=== PATIENT | female | born 1935 | race Caucasian/White ===

== ENCOUNTER → 2018-04-08 08:28 | Outpatient (REF) | payer SELFPAY ==
[2018-03-24 02:03] VITALS: BMI 18.8
[2018-03-26 06:59] VITALS: PULSE 101; RESP 22; O2SAT 92
[2018-04-08 09:27] LABS: Add Manual Diff / Slide Review NO; Basophils Percent Auto 0.9 % (0-2); Eosinophils Percent Auto 1.6 % (2-4); Hematocrit 30.5 % (36-46); Hemoglobin 10.6 g/dL (12.0-16.0); Lymphocytes Percent Auto 18.1 % (25-40); Mean Corpuscular Volume 94.4 fL (80-100); Monocytes Percent Auto 12.8 % (3-14); Neutrophils Absolute Auto 4600 /uL (3000-5900); Neutrophils Percent Auto 66.6 % (50-75); Platelet Count 449 X10^3/uL (150-400); Red Blood Cell Count 3.23 X10^6/uL (4.0-5.2); Red Cell Distribution Width 13.2 % (11.6-14.8); White Blood Cell Count 6.9 X10^3/uL (4.5-11.0)
[2018-04-08 09:38] LABS: INR 2.3 (0.9-1.3); Prothrombin Time 24.3 SECONDS (10.1-12.7)
[2018-04-08 09:48] LABS: Calcium 8.6 mg/dL (8.4-10.2); Estimated Glomerular Filt Rate > 60.0 mL/min (>60); Glucose 87 mg/dL (80-110); HEMOLYSIS < 15 (0-50); Potassium 4.2 mmol/L (3.4-5.1); Sodium 137 mmol/L (137-145)
== END ==
LOC: LAB 08:28
PROVIDERS: Family Provider Family Medicine; PCP Family Medicine; Visit Provider Internal Medicine
DX: Z00.00 Encounter for general adult medical examination without abnormal findings (principal); I26.99 Other pulmonary embolism without acute cor pulmonale
CPT/HCPCS: 36415; 80048; 85025; 85610

== ENCOUNTER → 2018-04-11 07:53 | Outpatient (REF) | payer SELFPAY ==
[2018-03-24 02:03] VITALS: BMI 18.8
[2018-03-26 06:59] VITALS: PULSE 101; RESP 22; O2SAT 92
[2018-04-11 09:07] LABS: Add Manual Diff / Slide Review NO; Basophils Percent Auto 0.9 % (0-2); Eosinophils Percent Auto 3.9 % (2-4); Hematocrit 32.2 % (36-46); Lymphocytes Percent Auto 28.5 % (25-40); Mean Corpuscular Hemoglobin 32.3 PG (26-34); Monocytes Percent Auto 17.1 % (3-14); Neutrophils Absolute Auto 3000 /uL (3000-5900); Neutrophils Percent Auto 49.6 % (50-75); Platelet Count 440 X10^3/uL (150-400); Red Blood Cell Count 3.39 X10^6/uL (4.0-5.2); Red Cell Distribution Width 13.5 % (11.6-14.8)
[2018-04-11 09:20] LABS: Estimated Glomerular Filt Rate > 60.0 mL/min (>60); Glucose 73 mg/dL (80-110); HEMOLYSIS < 15 (0-50); Potassium 4.3 mmol/L (3.4-5.1); Sodium 138 mmol/L (137-145)
== END ==
LOC: LAB 07:53
PROVIDERS: Family Provider Family Medicine; PCP Family Medicine; Visit Provider Internal Medicine
DX: Z00.00 Encounter for general adult medical examination without abnormal findings (principal); I50.9 Heart failure, unspecified; J18.9 Pneumonia, unspecified organism
CPT/HCPCS: 36415; 80048; 85025

== ENCOUNTER → 2018-04-13 08:15 | Outpatient (REF) | payer SELFPAY ==
[2018-03-24 02:03] VITALS: BMI 18.8
[2018-03-26 06:59] VITALS: PULSE 101; RESP 22; O2SAT 92
[2018-04-13 09:14] LABS: Add Manual Diff / Slide Review NO; Basophils Percent Auto 1.2 % (0-2); Eosinophils Percent Auto 2.8 % (2-4); Hematocrit 32.2 % (36-46); Hemoglobin 11.1 g/dL (12.0-16.0); Lymphocytes Percent Auto 19.3 % (25-40); Mean Corpuscular HGB Conc 34.4 % (30-36); Mean Corpuscular Hemoglobin 32.6 PG (26-34); Mean Corpuscular Volume 94.8 fL (80-100); Monocytes Percent Auto 11.4 % (3-14); Neutrophils Absolute Auto 4300 /uL (3000-5900); Neutrophils Percent Auto 65.3 % (50-75); Platelet Count 435 X10^3/uL (150-400); Red Cell Distribution Width 13.4 % (11.6-14.8); White Blood Cell Count 6.6 X10^3/uL (4.5-11.0)
[2018-04-13 09:35] LABS: Estimated Glomerular Filt Rate > 60.0 mL/min (>60); Glucose 76 mg/dL (80-110); HEMOLYSIS < 15 (0-50); Potassium 4.2 mmol/L (3.4-5.1); Sodium 138 mmol/L (137-145)
== END ==
LOC: LAB 08:15
PROVIDERS: Family Provider Family Medicine; PCP Family Medicine; Visit Provider Internal Medicine
DX: Z00.00 Encounter for general adult medical examination without abnormal findings (principal); J18.9 Pneumonia, unspecified organism; I50.9 Heart failure, unspecified; I26.99 Other pulmonary embolism without acute cor pulmonale
CPT/HCPCS: 36415; 80048; 85025

== ENCOUNTER → 2018-04-15 07:58 | Outpatient (REF) | payer MEDICARE, OTHER, SELFPAY ==
[2018-03-24 02:03] VITALS: BMI 18.8
[2018-03-26 06:59] VITALS: PULSE 101; RESP 22; O2SAT 92
[2018-04-15 08:49] LABS: INR 1.5 (0.9-1.3); Prothrombin Time 16.4 SECONDS (10.1-12.7)
== END ==
LOC: LAB 07:58
PROVIDERS: Family Provider Family Medicine; PCP Family Medicine; Visit Provider Internal Medicine
DX: Z92.29 Personal history of other drug therapy (principal)
CPT/HCPCS: 36415; 85610

== ENCOUNTER → 2018-04-18 09:11 | Outpatient (REF) | payer MEDICARE, SELFPAY ==
[2018-03-24 02:03] VITALS: BMI 18.8
[2018-03-26 06:59] VITALS: PULSE 101; RESP 22; O2SAT 92
[2018-04-18 09:35] LABS: INR 1.4 (0.9-1.3); Prothrombin Time 14.9 SECONDS (10.1-12.7)
== END ==
LOC: LAB 09:11
PROVIDERS: Family Provider Family Medicine; PCP Family Medicine; Visit Provider Internal Medicine
DX: I26.99 Other pulmonary embolism without acute cor pulmonale (principal)
CPT/HCPCS: 85610

== ENCOUNTER → 2018-04-20 09:50 | Outpatient (REF) | payer MEDICARE, OTHER, SELFPAY ==
[2018-03-24 02:03] VITALS: BMI 18.8
[2018-03-26 06:59] VITALS: PULSE 101; RESP 22; O2SAT 92
[2018-04-20 11:06] LABS: INR 1.5 (0.9-1.3); Prothrombin Time 16.6 SECONDS (10.1-12.7)
== END ==
LOC: LAB 09:50
PROVIDERS: Family Provider Family Medicine; PCP Family Medicine; Visit Provider Internal Medicine
DX: Z00.00 Encounter for general adult medical examination without abnormal findings (principal); I26.99 Other pulmonary embolism without acute cor pulmonale
CPT/HCPCS: 36415; 85610

== ENCOUNTER 2018-06-06 21:55 | Emergency (ER) | payer MEDICARE, OTHER, SELFPAY ==
[2018-03-24 02:03] VITALS: BMI 18.8
[2018-03-26 06:59] VITALS: PULSE 101; RESP 22; O2SAT 92
[2018-06-06 22:00] VITALS: BP 123/71; PULSE 119; RESP 18; TEMP 36.5; O2SAT 95; BMI 18.8
--- NOTE | 2018-06-06 22:32 | ED_ITS ---
HPI - SOB/Dyspnea General Chief Complaint: Shortness of Breath/Dyspnea Stated Complaint: THINKS SHE HAS A PULMONARY EMBOLISM Time Seen by Provider: 06/06/18 22:31 Source: patient Mode of arrival: ambulatory Limitations: no limitations History of Present Illness The patient was admitted here March 2018 with a PE. She is anticoagulated, on Coumadin. Over the last few days she has developed dyspnea with cough. She denies fever, chills or hemoptysis. She has dyspnea when climbing steps. She has no associated chest pain. She has no peripheral edema. She has no orthopnea. She was seen by her primary care physician earlier today, he noted her O2 sats had dropped from the upper 90s to the lower 90s. There was concern about recurrence of PE despite been anticoagulated. Vitals are otherwise stable , she came to the ER by POV using the local [employer] system. Upon arrival she is speaking in full sentences. She denies chest pain. She has primarily cough, and dyspnea with exertion. She is feeling fatigued. Her oral intake is poor. Her appetite is greatly compromised with the current element. Related Data Home Medications Medication Instructions Recorded Confirmed albuterol sulfate [ProAir HFA] 2 puff INHALATION Q4-6H PRN 03/24/18 03/24/18 atorvastatin 40 mg PO DAILY 03/24/18 03/24/18 metoprolol tartrate 25 mg PO BID 03/24/18 03/24/18 Previous Rx's Medication Instructions Recorded acetaminophen 650 mg PO Q4HR PRN #30 tab 04/02/18 tramadol 50 mg PO Q4HR PRN #30 tab 04/02/18 warfarin [Coumadin] 4 mg PO 1700 #30 tab 04/02/18 amoxicillin-pot clavulanate 1 tab PO BID #14 tab 06/07/18 Allergies Allergy/AdvReac Type Severity Reaction Status Date / Time No Known Drug Allergies Allergy Verified 03/23/18 22:47 Review of Systems Constitutional Denies chills, Denies fever(s), Reports lethargy and Reports weakness ENT Ears, Nose, Mouth, and Throat: Denies change in voice, Denies dysphagia, Denies dizziness, Denies neck pain and Denies sore throat Cardiovascular Denies chest pain, Denies irregular heart rhythm, Denies lightheadedness, Denies palpitations, Reports dyspnea, Reports dyspnea on exertion and Denies orthopnea Respiratory Reports cough, Denies hemoptysis, Reports dyspnea and Reports dyspnea on exertion Gastrointestinal Gastrointestinal: Denies abdominal pain, Denies constipation, Denies cramping, Denies dysphagia, Denies nausea, Denies vomiting and Reports other (Loss of appetite) Musculoskeletal Denies neck pain Integumentary/Breasts Denies pruritus, Denies erythema, Denies rash and Denies wounds Neurologic Denies dizziness and Reports weakness Endocrine Denies palpitations [facility] Medical History Acute pulmonary embolism (Acute) HTN (hypertension) (Chronic) Hyperlipidemia (Chronic) Social History household members: spouse Smoking Status: Former smoker additional social history: She and her live on [facility] long-time residents there Exam Initial Vital Signs Initial Vital Signs: Vital Signs Temperature 97.7 F 06/06/18 22:00 Pulse Rate 119 H 06/06/18 22:00 Respiratory Rate 18 06/06/18 22:00 Blood Pressure 123/71 H 06/06/18 22:00 Pulse Oximetry 95 06/06/18 22:00 Const General: cooperative, healthy appearing, comfortable, well developed and No acute distress Orientation: alert, awake and oriented x3 HENMT Head: normocephalic and atraumatic Ears: TM's normal bilaterally Face and sinus: sinuses nontender and face symmetric Mouth: oral mucosae normal and moist mucous membranes Throat: tonsils normal and uvula not midline Eyes General: appearance normal, both eyes and all related structures Conjunctivae: conjunctivae normal Sclera: sclerae normal Pupils: PERRL EOM: EOM intact bilaterally Neck Neck: full ROM and No JVD Chest Chest: normal inspection of the chest Resp Effort & Inspection: normal respiratory effort, able to speak in complete sentences, no respiratory distress and no use of accessory muscles Auscultation: clear to auscultation bilaterally, no rales, no rhonchi and no wheezes Cardio Rate: regular rate Rhythm: regular rhythm Heart Sounds: no click, no gallops, no murmurs and no rubs Pulses: normal peripheral pulses GI Inspection: non-distended Palpation: soft, no hepatosplenomegaly, No guarding, No pulsatile mass and No tender Auscultation: normal bowel sounds Skin General: no rashes or lesions noted and No petechiae Neuro General: alert, oriented x3, gait normal and no focal motor deficits Speech: speech normal Extrem General: full ROM, no clubbing, cyanosis or edema, no pedal edema and no calf tenderness Course Orders Ordered: ED Orders 06/06/18 22:45 CMP [Comprehensive Metabolic Panel] Stat Complete Blood Count AUTO DIFF Stat Partial Thromboplastin Time Stat Prothrombin Time INR Stat 06/06/18 22:49 CT angio chest Stat 06/07/18 EKG-12 Lead Routine 06/07/18 01:12 Urine Microscopic Stat Discontinued Medications Sodium Chloride (Normal Saline 0.9%) 1,000 mls @ 125 mls/hr IV CONT ALEXIS Last Infusion: 06/07/18 04:18 Dose: 125 mls/hr Admin: 06/06/18 23:30 Dose: 125 mls/hr Ceftriaxone Sodium/Dextrose (Rocephin) 1 gm in 50 mls @ 100 mls/hr IV NOW ONE Stop: 06/07/18 03:13 Last Infusion: 06/07/18 03:57 Dose: 0 mls/hr Admin: 06/07/18 03:11 Dose: 100 mls/hr Vital Signs - 8 hr 06/07/18 00:00 06/07/18 01:30 06/07/18 02:00 Temperature Pulse Rate 81 83 83 Respiratory Rate 16 22 17 Blood Pressure [Right Arm] 123/63 H 124/60 H 116/75 Pulse Oximetry 97 93 94 06/07/18 03:00 06/07/18 03:30 06/07/18 04:19 Temperature 99.0 F Pulse Rate 74 80 Respiratory Rate 21 Blood Pressure [Right Arm] 128/71 H 137/70 H Pulse Oximetry 100 95 MDM - SOB/Dyspnea Medical Records Attestation: I reviewed the patient's medical records. Lab Data Attestation: I reviewed the patient's lab results. Result diagrams: 06/06/18 22:45 06/06/18 22:45 Lab Results 06/06/18 06/06/18 06/06/18 Range/Units 22:45 22:45 22:45 WBC 10.8 (4.5-11.0) X10^3/uL RBC 3.84 L (4.0-5.2) X10^6/uL Hgb 12.4 (12.0-16.0) g/dL Hct 36.1 (36-46) % MCV 94.0 (80-100) fL MCH 32.2 (26-34) PG MCHC 34.2 (30-36) % RDW 15.1 H (11.6-14.8) % Plt Count 287 (150-400) X10^3/uL Neut % (Auto) 75.6 H (50-75) % Lymph % (Auto) 12.9 L (25-40) % [place] % (Auto) 10.4 (3-14) % Eos % (Auto) 0.2 L (2-4) % Baso % (Auto) 0.9 (0-2) % Neut # (Auto) 8200 H (3042-1996) /uL PT 21.7 H (10.1-12.7) SECONDS INR 2.0 H (0.9-1.3) APTT 37 H (26.4-36.2) SECONDS Sodium 134 L (137-145) mmol/L Potassium 3.8 (3.4-5.1) mmol/L Chloride 94 L (98-107) mmol/L Carbon Dioxide 31 (22-32) mmol/L BUN 23 H (7-17) mg/dL Creatinine 0.70 (0.52-1.04) mg/dL Estimated GFR > 60.0 (>60) mL/min BUN/Creatinine Ratio 32.9 H (6-22) Glucose 113 H (80-110) mg/dL Calcium 9.9 (8.4-10.2) mg/dL Total Bilirubin 1.0 (0.2-1.3) mg/dL AST 77 H (14-36) IU/L ALT 47 (9-52) IU/L Alkaline Phosphatase 235 H (38-126) U/L Total Protein 7.3 (6.3-8.2) g/dL Albumin 3.8 (3.5-5.0) g/dL Globulin 3.5 (1.7-4.1) g/dL Albumin/Globulin Ratio 1.1 (1.0-2.8) Urine RBC (0-5/HPF) Urine WBC (0-5/HPF) Ur Squamous Epith Cells Urine Bacteria (None) Hyaline Casts (None) Urine Mucus (Negative) Ur Culture Indicated? Micro UA Comment 06/07/18 Range/Units 01:12 WBC (4.5-11.0) X10^3/uL RBC (4.0-5.2) X10^6/uL Hgb (12.0-16.0) g/dL Hct (36-46) % MCV (80-100) fL MCH (26-34) PG MCHC (30-36) % RDW (11.6-14.8) % Plt Count (150-400) X10^3/uL Neut % (Auto) (50-75) % Lymph % (Auto) (25-40) % [place] % (Auto) (3-14) % Eos % (Auto) (2-4) % Baso % (Auto) (0-2) % Neut # (Auto) (6804-2527) /uL PT (10.1-12.7) SECONDS INR (0.9-1.3) APTT (26.4-36.2) SECONDS Sodium (137-145) mmol/L Potassium (3.4-5.1) mmol/L Chloride (98-107) mmol/L Carbon Dioxide (22-32) mmol/L BUN (7-17) mg/dL Creatinine (0.52-1.04) mg/dL Estimated GFR (>60) mL/min BUN/Creatinine Ratio (6-22) Glucose (80-110) mg/dL Calcium (8.4-10.2) mg/dL Total Bilirubin (0.2-1.3) mg/dL AST (14-36) IU/L ALT (9-52) IU/L Alkaline Phosphatase (38-126) U/L Total Protein (6.3-8.2) g/dL Albumin (3.5-5.0) g/dL Globulin (1.7-4.1) g/dL Albumin/Globulin Ratio (1.0-2.8) Urine RBC None seen (0-5/HPF) Urine WBC 5-10/hpf H (0-5/HPF) Ur Squamous Epith Cells 5-10 /hpf H Urine Bacteria Occasional (0-1) (None) Hyaline Casts 10-30/lpf (None) Urine Mucus 1+ H (Negative) Ur Culture Indicated? Cult not indicated Micro UA Comment Not Reportable Imaging Data CT scan - chest: Radiologist's impression: No evidence of PE. Diffuse densities suggestive of inflammatory process bilaterally. ECG Data Attestation: I personally reviewed and interpreted this ECG as follows: (Normal sinus rhythm. No ectopy. Normal intervals. No acute ST changes.) Discharge Plan Departure Patient Disposition: Home, Self-Care Clinical Impression: Pneumonia Discharge Date/Time: 06/07/18 04:31 Interventions: ED Discharge Assessment Last Done: 06/07/18 04:19 Instructions: DI for Pneumonia -- Adult Activity Restrictions/Additional Instructions: Take Augmentin 2 times daily as prescribed. Drink plenty of water, stay well hydrated. Fight the poor appetite, and force yourself to eat. Return here if obviously worse. Prescriptions: New amoxicillin-pot clavulanate 875-125 mg tablet 1 tab PO BID Qty: 14 RF: 0 No Action atorvastatin 40 mg Tablet 40 mg PO DAILY RF: 0 metoprolol tartrate 25 mg Tablet 25 mg PO BID RF: 0 albuterol sulfate [ProAir HFA] 90 mcg/actuation Hfa Aerosol Inhaler 2 puff INHALATION Q4-6H PRN (Reason: Cough) RF: 0 acetaminophen 325 mg Tablet 650 mg PO Q4HR PRN (Reason: As Needed For Fever/Mild Pain) Qty: 30 RF: 0 tramadol 50 mg Tablet 50 mg PO Q4HR PRN (Reason: Moderate Pain) Qty: 30 RF: 0 warfarin [Coumadin] 2 mg Tablet 4 mg PO 1700 Qty: 30 RF: 0
--- NOTE | 2018-06-06 22:49 | DI.CT.S_ITS ---
PROCEDURE: CT ANGIO CHEST INDICATIONS: Recent pulomary embolism. She returns with same symptoms suggestive of recurrent PE. TECHNIQUE: After the administration of intravenous contrast, 2 mm thick sections acquired from the pulmonary apices to the posterior costophrenic angles. 3-dimensional maximum intensity projection (MIP) coronal and sagittal reformats were then acquired through the thorax. For radiation dose reduction, the following was used: automated exposure control, adjustment of mA and/or kV according to patient size. COMPARISON: [facility], CT, CT CHEST WO [facility], 03/26/2018, 9:18. FINDINGS: Image quality: Excellent. Pulmonary arteries: Pulmonary arteries are normal in size, and demonstrate no intraluminal filling defects to suggest central pulmonary embolism. Lungs and pleura: Previously seen dependent bilateral lower lobe air space opacities have decreased significantly. There is new moderate airspace opacity within the right middle lobe and lingula. Patchy nodular densities within the bilateral mid lungs is present, which is slightly increased. No change in biapical scarring. No pleural effusions or pneumothorax. Central and peripheral airways are patent. Mediastinum: Heart size is normal, without pericardial effusion. Calcification of the coronary vasculature. No change in precarinal adenopathy or 11 mm. Thoracic aorta is normal in caliber and enhancement. Esophagus is normal in caliber, without hiatal hernia. Bones and chest wall: No suspicious bony lesions. Ribs and thoracic spine appear intact throughout. Thyroid gland demonstrates a small low-density focus within the left lobe measuring 5 mm.. No axillary or supraclavicular adenopathy. Abdomen: Visualized upper abdominal solid organs appear normal in the early arterial phase of enhancement. IMPRESSION: 1. No evidence of pulmonary embolus. 2. No change in precarinal adenopathy. 3. Bilateral pneumonia as described above. 4. Coronary artery disease. Left thyroid nodule, which could be further assessed with ultrasound, if clinically indicated. Dictated by: Gustavo Avilez M.D. on 06/07/2018 at 8:55 Approved by: Gustavo Avilez M.D. on 06/07/2018 at 9:00
[2018-06-06 22:56] LABS: Add Manual Diff / Slide Review NO; Basophils Percent Auto 0.9 % (0-2); Eosinophils Percent Auto 0.2 % (2-4); Hematocrit 36.1 % (36-46); Hemoglobin 12.4 g/dL (12.0-16.0); Lymphocytes Percent Auto 12.9 % (25-40); Mean Corpuscular HGB Conc 34.2 % (30-36); Mean Corpuscular Hemoglobin 32.2 PG (26-34); Monocytes Percent Auto 10.4 % (3-14); Neutrophils Absolute Auto 8200 /uL (3000-5900); Neutrophils Percent Auto 75.6 % (50-75); Platelet Count 287 X10^3/uL (150-400); Red Blood Cell Count 3.84 X10^6/uL (4.0-5.2); Red Cell Distribution Width 15.1 % (11.6-14.8); White Blood Cell Count 10.8 X10^3/uL (4.5-11.0)
[2018-06-06 23:00] VITALS: BP 134/74; PULSE 102; RESP 21; O2SAT 95
[2018-06-06 23:02] LABS: Prothrombin Time 21.7 SECONDS (10.1-12.7)
[2018-06-06 23:04] LABS: PTT Partial Thromboplastin Tim 37 SECONDS (26.4-36.2)
[2018-06-06 23:21] LABS: Alanine Aminotransferase 47 IU/L (9-52); Albumin 3.8 g/dL (3.5-5.0); Albumin Globulin Ratio 1.1 (1.0-2.8); Alkaline Phosphatase 235 U/L (38-126); Aspartate Aminotransferase 77 IU/L (14-36); BUN Creatinine Ratio 32.9 (6-22); Blood Urea Nitrogen 23 mg/dL (7-17); Calcium 9.9 mg/dL (8.4-10.2); Carbon Dioxide 31 mmol/L (22-32); Chloride 94 mmol/L (98-107); Estimated Glomerular Filt Rate > 60.0 mL/min (>60); Globulin 3.5 g/dL (1.7-4.1); Glucose 113 mg/dL (80-110); HEMOLYSIS < 15 (0-50); Potassium 3.8 mmol/L (3.4-5.1); Sodium 134 mmol/L (137-145); Total Protein 7.3 g/dL (6.3-8.2)
[2018-06-06] MEDS: SODIUM CHLORIDE 0.9% 1,000 ML 125 ML IV (23:30)
[2018-06-07] VITALS: BP 123/63; PULSE 81; RESP 16; O2SAT 97
--- NOTE | 2018-06-07 00:05 | PC.NURSE ---
dyspnea, began yesterday, recent admission for PE per pt, reports sx are same as last episode, pain is in bilateral rib/chest/axilla, lungs clear/diminished in bases, denies fever/chills/nausea/vomiting/diarrhea/dysuria/trauma or other sx, sinus tach on monitor
[2018-06-07 01:18] LABS: RBC Urine None Seen (0-5/HPF)
[2018-06-07 01:30] VITALS: BP 124/60; PULSE 83; RESP 22; O2SAT 93
[2018-06-07 02:00] VITALS: BP 116/75; PULSE 83; RESP 17; O2SAT 94
[2018-06-07 02:26] LABS: WBC Urine 5-10/HPF (0-5/HPF)
[2018-06-07 02:27] LABS: Bacteria Urine Occasional (0-1); Culture Indicated Urine Cult Not Indicated; Hyaline Casts Urine 10-30/LPF; Mucus Urine 1+ (Negative); Squamous Epithelial Cell Urine 5-10 /HPF
[2018-06-07 03:00] VITALS: BP 128/71; PULSE 74; RESP 21; O2SAT 100
[2018-06-07] MEDS: CEFTRIAXONE 1 GM/50 ML FROZ.PIGGY IV (03:11)
[2018-06-07 03:30] VITALS: BP 137/70; PULSE 80; O2SAT 95
[2018-06-07 04:19] VITALS: TEMP 37.2
== END 2018-06-07 04:31 | disposition home or self-care (01) ==
PROVIDERS: Emergency Provider Emergency Medicine; Family Provider Family Medicine; PCP Family Medicine
DX: J18.9 Pneumonia, unspecified organism (principal)
CPT/HCPCS: 36591; 71275; 80053; 81003; 81015; 85025; 85610; 85730; 93005; 96361; 96365; 99284; 99285; Q9967

== ENCOUNTER → 2018-06-07 15:45 | Outpatient (CLI) | payer MEDICARE, OTHER, SELFPAY ==
[2018-03-24 02:03] VITALS: BMI 18.8
[2018-03-26 06:59] VITALS: PULSE 101; RESP 22; O2SAT 92
[2018-06-07 18:23] LABS: INR 1.9 (0.9-1.3); Prothrombin Time 20.3 SECONDS (10.1-12.7)
== END ==
PROVIDERS: PCP Family Medicine; Visit Provider Family Medicine
DX: I26.99 Other pulmonary embolism without acute cor pulmonale (principal); Z79.01 Long term (current) use of anticoagulants
CPT/HCPCS: 36415; 85610

== ENCOUNTER → 2019-08-22 13:08 | Outpatient (CLI) | payer MEDICARE, OTHER, SELFPAY ==
[2018-03-24 02:03] VITALS: BMI 18.8
[2018-03-26 06:59] VITALS: PULSE 101; RESP 22; O2SAT 92
--- NOTE | 2019-08-22 | DI.US.S_ITS ---
PROCEDURE: US CAROTID DOPPLER BI INDICATIONS: OCCLUSION AND STENOSIS OF BILATERAL CAROTID ARTERIES TECHNIQUE: Color and pulse Doppler interrogation was performed of both carotid systems, with image documentation and velocity measurements. COMPARISON: None. FINDINGS: Stenosis calculations are based on SRU (Society of Radiologists in Ultrasound) criteria. Right side: Brachial blood pressure: 130/63 mm Hg. Common carotid artery peak systolic velocity: 90 cm/sec. Internal carotid artery peak systolic velocity: 140 cm/sec. Internal carotid artery end diastolic velocity: 29 cm/sec. External carotid artery peak systolic velocity: 114 cm/sec. ICA/CCA peak systolic ratio: 1.6 Garcia scale imaging description: Moderate atherosclerotic changes are seen Percent internal carotid artery stenosis: 50-69% by velocity criteria. Vertebral artery: Flow direction is antegrade. Left side: Brachial blood pressure: 120/62 mm Hg. Common carotid artery peak systolic velocity: 85 cm/sec. Internal carotid artery peak systolic velocity: 278 cm/sec. Internal carotid artery end diastolic velocity: 54 cm/sec. External carotid artery peak systolic velocity: 139 cm/sec. ICA/CCA peak systolic ratio: 3.3 Gracia scale imaging description: Moderate to prominent atherosclerotic changes are seen. Percent internal carotid artery stenosis: Greater than 70%. Vertebral artery: Flow direction is antegrade. IMPRESSION: By velocity criteria, there is a greater than 70% stenosis involving the left internal carotid artery. By velocity criteria, there is a moderate stenosis (between 50 and 69% stenosis) within the right proximal internal carotid artery. The true degree of stenosis is felt most likely to be at the lower end of this range. Dictated by: Dylan Silver M.D. on 08/22/2019 at 15:46 Approved by: Dylan Silver M.D. on 08/22/2019 at 15:48
== END ==
PROVIDERS: PCP Family Medicine; Visit Provider Family Medicine
DX: I65.23 Occlusion and stenosis of bilateral carotid arteries (principal)
CPT/HCPCS: 93880

== ENCOUNTER → 2021-03-21 12:56 | Outpatient (CLI) | payer MEDICARE, OTHER, SELFPAY ==
[2021-03-20 12:04] VITALS: PULSE 101; RESP 22; O2SAT 92; BMI 18.8
[2021-03-21 19:40] LABS: Add Manual Diff / Slide Review NO; Basophils Absolute Auto 0 /uL (0-100); Basophils Percent Auto 0.6 % (0-2); Eosinophils Absolute Auto 100 /uL (0-450); Eosinophils Percent Auto 1.2 % (2-4); Hematocrit 36.4 % (36-46); Hemoglobin 12.5 g/dL (12.0-16.0); Lymphocytes Absolute Auto 1100 /uL (1100-4500); Lymphocytes Percent Auto 16.2 % (25-40); Mean Corpuscular HGB Conc 34.4 % (30-36); Mean Corpuscular Hemoglobin 35.1 PG (26-34); Mean Corpuscular Volume 101.9 fL (80-100); Monocytes Absolute Auto 900 /uL (0-900); Monocytes Percent Auto 12.9 % (3-14); Neutrophils Absolute Auto 4700 /uL (1500-7000); Neutrophils Percent Auto 69.1 % (50-75); Platelet Count 174 X10^3/uL (150-400); Red Blood Cell Count 3.57 X10^6/uL (4.0-5.2); Red Cell Distribution Width 13.6 % (11.6-14.8); White Blood Cell Count 6.8 X10^3/uL (4.5-11.0)
[2021-03-21 19:42] LABS: Alanine Aminotransferase 22 IU/L (<35); Albumin 3.7 g/dL (3.5-5.0); Albumin Globulin Ratio 1.4 (1.0-2.8); Alkaline Phosphatase 91 U/L (38-126); Aspartate Aminotransferase 41 IU/L (14-36); BUN Creatinine Ratio 32.3 (6-22); Bilirubin Total 0.8 mg/dL (0.2-1.3); Blood Urea Nitrogen 21 mg/dL (7-17); Calcium 10.2 mg/dL (8.4-10.2); Carbon Dioxide 31 mmol/L (22-32); Chloride 103 mmol/L (98-107); Estimated Glomerular Filt Rate > 60.0 mL/min (>60); Globulin 2.7 g/dL (1.7-4.1); Glucose 89 mg/dL (80-110); HEMOLYSIS < 15 (0-50); Potassium 4.5 mmol/L (3.4-5.1); Sodium 139 mmol/L (137-145); Total Protein 6.4 g/dL (6.3-8.2); Uric Acid 4.2 mg/dL (2.5-6.2)
== END ==
PROVIDERS: PCP Family Medicine; Visit Provider Family Medicine
DX: I26.99 Other pulmonary embolism without acute cor pulmonale (principal); M10.9 Gout, unspecified; E78.5 Hyperlipidemia, unspecified
CPT/HCPCS: 80053; 84550; 85025

== ENCOUNTER → 2021-04-16 11:24 | Outpatient (CLI) | payer MEDICARE, OTHER, SELFPAY ==
[2021-03-20 12:04] VITALS: PULSE 101; RESP 22; O2SAT 92; BMI 18.8
--- NOTE | 2021-04-16 11:35 | DI.CT.S_ITS ---
PROCEDURE: CT LUMBAR SPINE WO CON INDICATIONS: Persistent and progressive localized lower back pain TECHNIQUE: Noncontrast 3 mm thick sections acquired from the T12 level to the sacrum. Sagittal and coronal reformats were constructed. For radiation dose reduction, the following was used: automated exposure control. COMPARISON: [facility] ([place]), CR, XR LUMBAR SPINE 2-3V, 03/28/2021, 10:32. FINDINGS: Image quality: Excellent. Bones: There is a chronic appearing anterior wedge deformity seen of L1, with 30% loss of height centrally. There is also a subacute appearing central compression deformity seen of L3, with 20-30% loss of height centrally, which appears slightly progressed compared to the 03/28/2021 plain films. No posterior displacement of fracture fragments can be seen. No suspicious lytic or blastic bony lesions. No pars defects. Mild levoconvex scoliotic curvature is noted. There is mild retrolisthesis at L1-L2. Mild grade 1 anterolisthesis is seen at the L4-L5. No associated pars defects are seen. T12-L1: The disc height is relatively well preserved. Mild disc bulge is seen, with a central/left disc osteophyte protrusion, as on series 3, image 20 and on series 6 image 35. No significant neural foraminal or central canal narrowing can be seen. L1-L2: Mild loss of disc height is seen. Moderate disc bulge is seen. Disc protrusions are seen involving both lateral recesses. There is a central disc protrusion seen, with calcification along the posterior aspect of the disc, as on series 6, image 33. Moderate bilateral neural foraminal narrowing is seen. Mild to moderate central canal narrowing is seen. L2-L3: The disc height is well preserved. Moderate generalized disc bulge is seen. Moderate facet joint hypertrophy is seen. Moderate bilateral neural foraminal narrowing is seen. Moderate central canal narrowing is seen. L3-L4: [id number] loss of disc height and disc signal can be seen. At least moderate disc bulge is seen, with a central disc protrusion. There is focal calcification seen along the posterior aspect of the disc, as on series 6, image 33. [id number] facet hypertrophy is seen. Moderate bilateral neural foraminal narrowing is seen. Moderate central canal narrowing is seen. L4-L5: At least moderate loss of disc height can be seen. Moderate generalized disc bulge is seen. Moderate to prominent facet hypertrophy is seen. There is moderate to severe bilateral neural foraminal narrowing seen, right worse than left. There is a degree of compression seen upon the exiting nerve roots. Mild central canal narrowing is seen. L5-S1: Moderate to severe loss of disc height is seen. Vacuum disc phenomenon is seen at this level. At least moderate disc bulge is seen, which is eccentric to the right. Mild to moderate facet hypertrophy is seen. There is moderate to severe bilateral neural foraminal narrowing seen, right worse than left. There is a degree of compression seen upon the exiting nerve roots. Mild central canal narrowing is seen. Soft tissues: No retroperitoneal masses or hematomas. Visualized aorta is normal in caliber. Atherosclerotic calcification is noted. Pacer leads are seen on the cutter head sharpener image. IMPRESSION: Subacute appearing L3 fracture, which appears slightly progressed compared to the 03/28/2021 examination, with 20-30% loss of height centrally. Multiple levels of degenerative change are seen, which are worst at L4-L5 and L5-S1, where a degree of compression can be seen upon the exiting nerve roots. Dictated by: Dylan Silver M.D. on 04/16/2021 at 12:01 Approved by: Dylan Silver M.D. on 04/16/2021 at 12:10
== END ==
PROVIDERS: PCP Family Medicine; Referring Provider Family Medicine; Visit Provider Family Medicine
DX: M43.16 Spondylolisthesis, lumbar region (principal); M54.5 Low back pain; M47.816 Spondylosis without myelopathy or radiculopathy, lumbar region; M47.817 Spondylosis without myelopathy or radiculopathy, lumbosacral region; M48.56XA Collapsed vertebra, not elsewhere classified, lumbar region, initial encounter for fracture
CPT/HCPCS: 72131

== ENCOUNTER → 2021-11-07 12:04 | Outpatient (CLI) | payer MEDICARE, OTHER, SELFPAY ==
[2021-03-20 12:04] VITALS: PULSE 101; RESP 22; O2SAT 92; BMI 18.8
[2021-11-07 18:51] LABS: Add Manual Diff / Slide Review NO; Basophils Absolute Auto 100 /uL (0-100); Eosinophils Absolute Auto 0 /uL (0-450); Eosinophils Percent Auto 0.8 % (2-4); Hematocrit 37.6 % (36-46); Hemoglobin 12.9 g/dL (12.0-16.0); Lymphocytes Absolute Auto 1300 /uL (1100-4500); Lymphocytes Percent Auto 21.8 % (25-40); Mean Corpuscular HGB Conc 34.3 % (30-36); Mean Corpuscular Hemoglobin 34.5 PG (26-34); Mean Corpuscular Volume 100.7 fL (80-100); Monocytes Absolute Auto 600 /uL (0-900); Monocytes Percent Auto 11.3 % (3-14); Neutrophils Absolute Auto 3700 /uL (1500-7000); Neutrophils Percent Auto 65.1 % (50-75); Platelet Count 197 X10^3/uL (150-400); Red Blood Cell Count 3.73 X10^6/uL (4.0-5.2); Red Cell Distribution Width 13.7 % (11.6-14.8); White Blood Cell Count 5.7 X10^3/uL (4.5-11.0)
[2021-11-07 19:00] LABS: Alanine Aminotransferase 20 IU/L (<35); Albumin 3.9 g/dL (3.5-5.0); Albumin Globulin Ratio 1.4 (1.0-2.8); Alkaline Phosphatase 95 U/L (38-126); Aspartate Aminotransferase 33 IU/L (14-36); BUN Creatinine Ratio 25.9 (6-22); Bilirubin Total 0.6 mg/dL (0.2-1.3); Blood Urea Nitrogen 15 mg/dL (7-17); Calcium 10.3 mg/dL (8.4-10.2); Carbon Dioxide 34 mmol/L (22-32); Chloride 103 mmol/L (98-107); Estimated Glomerular Filt Rate > 60.0 mL/min (>60); Globulin 2.8 g/dL (1.7-4.1); Glucose 122 mg/dL (80-110); HEMOLYSIS < 15 (0-50); Iron 74 ug/dL (37-170); Potassium 3.8 mmol/L (3.4-5.1); Sodium 140 mmol/L (137-145); Total Protein 6.7 g/dL (6.3-8.2)
[2021-11-07 19:12] LABS: Percent Iron Saturation 24 % (15-50); Total Iron Binding Capacity 312 ug/dL (265-497); Transferrin 254 mg/dL (206-381)
[2021-11-07 19:32] LABS: Ferritin 27 ng/mL (11-264)
[2021-11-07 19:33] LABS: TSH w/ Reflex to FT4 2.59 uIU/mL (0.47-4.68)
[2021-11-07 20:04] LABS: Folate 5.1 ng/mL (2.76-20.0); Vitamin B12 216 pg/mL (239-931)
== END ==
PROVIDERS: PCP Family Medicine; Visit Provider Physician Assistant
DX: I49.5 Sick sinus syndrome (principal); L03.116 Cellulitis of left lower limb; D64.9 Anemia, unspecified; R55 Syncope and collapse
CPT/HCPCS: 80053; 82607; 82728; 82746; 83540; 83550; 84443; 85025

== ENCOUNTER → 2022-03-11 08:04 | Outpatient (CLI) | payer MEDICARE, OTHER, SELFPAY ==
[2021-03-20 12:04] VITALS: PULSE 101; RESP 22; O2SAT 92; BMI 18.8
[2022-03-11 20:11] LABS: COVID19 - ORCAS (NP or Nasal) Negative (Negative)
== END ==
PROVIDERS: PCP Family Medicine; Visit Provider Physician Assistant
DX: R05.9 Cough, unspecified (principal); Z20.822 Contact with and (suspected) exposure to COVID-19
CPT/HCPCS: U0003

== ENCOUNTER 2022-03-13 11:54 | Observation (INO) | payer MEDICARE, OTHER, SELFPAY ==
[2021-03-20 12:04] VITALS: PULSE 101; RESP 22; O2SAT 92; BMI 18.8
[2022-03-13] VITALS (22 sets, daily range): BP systolic 117–183; BP diastolic 53–81; PULSE 74–125; RESP 16–24; TEMP 36.8–37.3; O2SAT 91–99; BMI 16.4
--- NOTE | 2022-03-13 11:58 | DI.RAD.S_ITS ---
PROCEDURE: XR CHEST 1V INDICATIONS: chest pain TECHNIQUE: One view of the chest was acquired. COMPARISON: [facility] ([place]), CR, XR CHEST 2V, 12/22/2021, 12:29. FINDINGS: Surgical changes and devices: Left chest wall pacemaker leads are in the region of right atrium and right ventricle.. Lungs and pleura: Chronic emphysematous changes are seen in in bilateral lung cordero. Ill-defined subtle opacities are seen in bilateral mid to lower lung cordero concerning for early developing patchy infiltrates. No pleural effusions or pneumothorax. Mediastinum: Tortuous thoracic aorta is seen with aortic arch calcifications. Heart size is normal. Bones and chest wall: No suspicious bony lesions. Overlying soft tissues appear unremarkable. IMPRESSION: COPD. Cannot rule out underlying subtle patchy bilateral pulmonary infiltrates. No pleural effusion or pneumothorax. Dictated by: Quincy Marx M.D. on 03/13/2022 at 12:32 Approved by: Quincy Marx M.D. on 03/13/2022 at 12:35
[2022-03-13 12:18] LABS: Add Manual Diff / Slide Review NO; Basophils Absolute Auto 0 /uL (0-100); Basophils Percent Auto 0.3 % (0-2); Eosinophils Absolute Auto 100 /uL (0-450); Eosinophils Percent Auto 0.4 % (2-4); Hematocrit 37.7 % (36-46); Hemoglobin 12.6 g/dL (12.0-16.0); Lymphocytes Absolute Auto 600 /uL (1100-4500); Lymphocytes Percent Auto 4.8 % (25-40); Mean Corpuscular HGB Conc 33.4 % (30-36); Mean Corpuscular Hemoglobin 33.6 PG (26-34); Mean Corpuscular Volume 100.6 fL (80-100); Monocytes Absolute Auto 1000 /uL (0-900); Monocytes Percent Auto 7.9 % (3-14); Neutrophils Absolute Auto 11300 /uL (1500-7000); Neutrophils Percent Auto 86.6 % (50-75); Platelet Count 280 X10^3/uL (150-400); Red Blood Cell Count 3.74 X10^6/uL (4.0-5.2); Red Cell Distribution Width 12.7 % (11.6-14.8)
[2022-03-13 13:02] LABS: Alanine Aminotransferase 108 IU/L (<35); Albumin 3.4 g/dL (3.5-5.0); Albumin Globulin Ratio 0.9 (1.0-2.8); Alkaline Phosphatase 202 U/L (38-126); Aspartate Aminotransferase 96 IU/L (14-36); BUN Creatinine Ratio 41.9 (6-22); Bilirubin Total 1.4 mg/dL (0.2-1.3); Blood Urea Nitrogen 26 mg/dL (7-17); Calcium 9.8 mg/dL (8.4-10.2); Carbon Dioxide 37 mmol/L (22-32); Chloride 99 mmol/L (98-107); Creatine Kinase < 20 U/L (30-135); Estimated Glomerular Filt Rate > 60 mL/min (>60); Globulin 3.7 g/dL (1.7-4.1); Glucose 112 mg/dL (80-110); HEMOLYSIS < 15 (0-50); Lipase 83 U/L (23-300); Magnesium 1.9 mg/dL (1.6-2.3); Potassium 3.6 mmol/L (3.4-5.1); Sodium 138 mmol/L (137-145); Total Protein 7.1 g/dL (6.3-8.2)
--- NOTE | 2022-03-13 13:05 | ED.WEAKNESS ---
HPI - Weakness General Chief complaint: Weakness Stated complaint: Failure to thrive Time Seen by Provider: 03/13/22 12:35 Source: patient Mode of arrival: EMS Limitations: no limitations History of Present Illness HPI Narrative: This is an 86-year-old female airlifted from [facility] for failure to thrive, weakness and decreased mental status. Per her lift unsure what her normal baseline is she is forgetful but alert and talkative with them. Patient on evaluation at bedside and is aware that she is at the hospital she wants to be at when has trouble recalling the name. She knows her name. She knows that she is here via your left but has trouble recalling other history. She can tell me she lives on [facility]. She has trouble give me any additional history. She denies any pain. No headache, no neck pain, no chest pain. Some occasional shortness of breath but does not describe it to myself. No describe nausea or vomiting no other GI or urinary symptoms described. She has reported history of COPD, pulmonary emboli and reportedly on anticoagulation with hypertension and dyslipidemia. Patient normally lives independently at home with her . Related Data Home Medications Medication Instructions Recorded Confirmed calcium carbonate 600 mg calcium 600 mg PO DAILY 03/25/21 03/13/22 (1,500 mg) tablet Previous Rx's Medication Instructions Recorded acetaminophen 500 mg tablet 500 - 1,000 mg PO Q8-10H PRN #40 11/05/21 (Tylenol Extra Strength) tab atorvastatin 40 mg tablet 40 mg PO DAILY #90 tab 01/17/22 metoprolol tartrate 25 mg tablet 12.5 mg PO DAILY #45 tab 02/16/22 rivaroxaban 20 mg tablet 20 mg PO DAILY #90 tab 02/16/22 Allergies Allergy/AdvReac Type Severity Reaction Status Date / Time amoxicillin AdvReac Intermediate Pain, Verified 03/13/22 09:53 Diarrhea Review of Systems Review of Systems ROS Unobtainable: Unobtainable due to mental status/LOC Patient History Medical History Achilles bursitis Achilles tendinitis Acute pulmonary embolism Anticoagulation adequate Arthritis of facet joint of cervical spine Carotid artery stenosis Cellulitis COPD (chronic obstructive pulmonary disease) HTN (hypertension) Hyperlipidemia Left knee pain 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 Low back pain Sinus node dysfunction Spondylolisthesis at L3-L4 level Ventricular tachycardia Surgical History Anesthesia History of appendectomy Pacemaker (~2019) Family History Father Cancer Mother Cancer Brother Cancer Social History household members: spouse Smoking Status: Former smoker alcohol intake: current additional social history: She and her live on [facility]-time residents there Smoking Status: Former smoker alcohol intake frequency: a few times a week Substance Use Type: does not use Exam Narrative Exam Narrative: GEN: Frail, thin elderly appearing female alert and oriented to self, patient appears to be in mild distress. HEENT: Atraumatic, pupils are equal round reactive to light, extraocular movements are intact, nares are clear, there is no conjunctival pallor. Throat is clear without any exudates, erythema, tonsillar enlargement or uvular deviation HEART: Regular rate and rhythm without murmur, clicks, rubs. Pulses are equal in upper and lower extremities LUNGS:Lungs clear to auscultation, no wheezes, rales, crackles, chest moves symmetrically ABD:bowel sounds normal, soft, non-tender, no guarding, rebound, rigidity, no masses noted, no hepatosplenomegaly :No CVA tenderness MSCL: Non-tender, no muscle atrophy, muscles strength 5/5 upper and lower extremities, full range of motion NEURO:CN 2-12 intact, sensation normal, finger nose finger test normal, heel eduardo test normal. GCS 14 SKIN: No rash, erythema or other skin changes. PSYCH: Pleasant, confused but does states she is normally has memory issues. No hallucinations. Initial Vital Signs Initial Vital Signs: Vital Signs Temperature 99.2 F 03/13/22 12:05 Pulse Rate 94 H 03/13/22 12:05 Respiratory Rate 18 03/13/22 12:05 Blood Pressure 183/81 H 03/13/22 12:05 Pulse Oximetry 96 03/13/22 12:05 Course Orders Ordered: ED Orders 03/13/22 11:58 XR chest 1V Stat 03/13/22 12:05 Complete Blood Count AUTO DIFF Stat Lactate (Lactic Acid) Stat PTT [Partial Thromboplastin Time] Stat Prothrombin Time INR Stat 03/13/22 12:15 EKG-12 Lead Stat 03/13/22 12:40 Blood Culture Stat Comprehensive Metabolic Panel Stat Lipase Stat Magnesium Stat Troponin & CK Cardiac Panel Stat 03/13/22 12:53 COVID19 -Nasal RAPID/Pre-Proc Stat 03/13/22 13:08 CT head/brain wo con Stat 03/13/22 13:09 US abdomen limited Stat 03/13/22 13:36 Troponin & CK Cardiac Panel Stat 03/13/22 13:50 Ictotest Urine Stat UA Complete [Urinalysis and Microscopic] Stat Urine Culture Stat Acetaminophen (Acetaminophen 325 Mg Tablet) 650 mg PO Q6HR PRN PRN Reason: Pain, Mild (1-3) Sodium Chloride (Normal Saline 0.9%) 1,000 mls @ 1,000 mls/hr IV BOLUS PRN PRN Reason: Fluid replacement Last Infusion: 03/13/22 16:22 Dose: 0 mls/hr Documented by: Admin: 03/13/22 15:21 Dose: 1,000 mls/hr Documented by: MARY Ceftriaxone Sodium 1,000 mg/ (Sodium Chloride) 100 mls @ 200 mls/hr IV Q24H ALEXIS Last Admin: 03/13/22 18:19 Dose: 200 mls/hr Documented by: CMCFARL Sodium Chloride (Normal Saline 0.9%) 250 mls @ 21 mls/hr IV Q24H PRN PRN Reason: Flush Metoprolol Succinate (Metoprolol Er 25 Mg Tablet) 12.5 mg PO BID REPLACED BY [facility] Naloxone HCl (Naloxone 0.4 Mg/Ml Vial) 0.2 mg IV Q2MIN PRN PRN Reason: Opiate Reversal Ondansetron HCl (Ondansetron 4 Mg/2 Ml Inj) 4 mg IV Q8HR PRN PRN Reason: Nausea And Vomiting Sodium Chloride (Sodium Chloride 0.9% Flush) 10 ml IV PRN PRN PRN Reason: Flush Sodium Chloride (Sodium Chloride 0.9% Flush) 10 ml IV BID REPLACED BY [facility] Discontinued Medications Diltiazem HCl (Diltiazem 5 Mg/Ml Sdv) 10 mg IV NOW ONE Stop: 03/13/22 15:45 Last Admin: 03/13/22 15:56 Dose: 10 mg Documented by: [email or web address] Diltiazem HCl (Diltiazem Cd 120 Mg Cap) 120 mg PO NOW ONE Stop: 03/13/22 16:22 Last Admin: 03/13/22 16:35 Dose: 120 mg Documented by: [email or web address] Levofloxacin (Levaquin) 750 mg in 150 mls @ 100 mls/hr IV NOW ONE Stop: 03/13/22 14:39 Last Infusion: 03/13/22 15:17 Dose: 0 mls/hr Documented by: Admin: 03/13/22 13:44 Dose: 100 mls/hr Documented by: [email or web address] Reevaluation(s) Reevaluation #1: Today's findings reviewed with patient and family currently and daughter both at bedside. Discussed additional workup that is planned. And goal of observation. The son states patient has some normal baseline memory issues but is definitely worse than her typical. She has able to ambulate to the bathroom but has been sleeping and not walking on the house. Patient is anticoagulated, she is on a statin he does not describe any beta-blockers or calcium channel blockers normally but has a history of AFib with a pacemaker in place for recurrent syncope. Patient has not had any other major changes besides generalized weakness, sleeping more and decreased mental status. Having appreciated pain, dyspnea or shortness of breath, she has not been having any vomiting but has not taken any solids for the past 5 days she has been taking fluids. No major changes to stool output that they report. Vital Signs Vital signs: Vital Signs - 8 hr 03/13/22 12:42 03/13/22 13:00 03/13/22 13:08 Pulse Rate 100 H 104 H 95 H Respiratory Rate Blood Pressure 121/58 L Pulse Oximetry 96 95 96 03/13/22 13:30 03/13/22 14:00 03/13/22 14:19 Pulse Rate 101 H 103 H 108 H Respiratory Rate Blood Pressure 117/75 Pulse Oximetry 98 94 91 03/13/22 14:30 03/13/22 15:00 03/13/22 15:14 Pulse Rate 107 H 117 H 113 H Respiratory Rate Blood Pressure 125/64 133/71 138/60 Pulse Oximetry 95 95 03/13/22 15:15 03/13/22 15:30 03/13/22 15:45 Pulse Rate 115 H 125 H 110 H Respiratory Rate 20 21 22 Blood Pressure 130/60 117/56 L 132/62 Pulse Oximetry 93 94 97 03/13/22 16:00 03/13/22 16:02 Pulse Rate 120 H 114 H Respiratory Rate 22 Blood Pressure 135/75 Pulse Oximetry 92 MDM - Weakness Lab Data Result diagrams: 03/13/22 12:05 03/13/22 12:40 Labs: Lab Results 03/13/22 03/13/22 03/13/22 Range/Units 12:05 12:05 12:05 WBC 13.0 H (4.5-11.0) X10^3/uL RBC 3.74 L (4.0-5.2) X10^6/uL Hgb 12.6 (12.0-16.0) g/dL Hct 37.7 (36-46) % MCV 100.6 H (80-100) fL MCH 33.6 (26-34) PG MCHC 33.4 (30-36) % RDW 12.7 (11.6-14.8) % Plt Count 280 (150-400) X10^3/uL Neut % (Auto) 86.6 H (50-75) % Lymph % (Auto) 4.8 L (25-40) % Casey % (Auto) 7.9 (3-14) % Eos % (Auto) 0.4 L (2-4) % Baso % (Auto) 0.3 (0-2) % Neut # (Auto) 89343 H (8197-5643) /uL Lymph # (Auto) 600 L (5131-9019) /uL Casey # (Auto) 1000 H (0-900) /uL Eos # (Auto) 100 (0-450) /uL Baso # (Auto) 0 (0-100) /uL PT 13.1 H (10.1-12.7) SECONDS INR 1.2 (0.9-1.3) APTT 27 D (26.4-36.2) SECONDS Sodium (137-145) mmol/L Potassium (3.4-5.1) mmol/L Chloride (98-107) mmol/L Carbon Dioxide (22-32) mmol/L BUN (7-17) mg/dL Creatinine (0.52-1.04) mg/dL Estimated GFR (>60) mL/min BUN/Creatinine Ratio (6-22) Glucose (80-110) mg/dL Lactate 1.5 (0.7-2.1) mmol/L Calcium (8.4-10.2) mg/dL Magnesium (1.6-2.3) mg/dL Total Bilirubin (0.2-1.3) mg/dL AST (14-36) IU/L ALT (<35) IU/L Alkaline Phosphatase (38-126) U/L Total Creatine Kinase (30-135) U/L CK-MB (CK-2) CK-MB (CK-2) Rel Index Troponin I (0.01-0.034) ng/mL Total Protein (6.3-8.2) g/dL Albumin (3.5-5.0) g/dL Globulin (1.7-4.1) g/dL Albumin/Globulin Ratio (1.0-2.8) Lipase (23-300) U/L Urine Color Urine Appearance Urine pH (4.5-8.0) Ur Specific [place] (1.000-1.035) Urine Protein (Negative) Urine Glucose (UA) (Negative) g/dL Urine Ketones (NEGATIVE) Urine Occult Blood (Negative) Urine Nitrate (Negative) Urine Bilirubin (NEGATIVE) Ur Bilirubin Confirm (Negative) Urine Urobilinogen (0.2) E.U./dL Ur Leukocyte Esterase (NEGATIVE) Urine RBC (0-5/HPF) Urine WBC (0-5/HPF) Amorphous Sediment Urine Bacteria (None) Hyaline Casts (None) Urine Mucus (Negative) Ur Culture Indicated? SARS-CoV-2 (PCR) (Negative) 03/13/22 03/13/22 03/13/22 Range/Units 12:40 12:53 13:36 WBC (4.5-11.0) X10^3/uL RBC (4.0-5.2) X10^6/uL Hgb (12.0-16.0) g/dL Hct (36-46) % MCV (80-100) fL MCH (26-34) PG MCHC (30-36) % RDW (11.6-14.8) % Plt Count (150-400) X10^3/uL Neut % (Auto) (50-75) % Lymph % (Auto) (25-40) % Casey % (Auto) (3-14) % Eos % (Auto) (2-4) % Baso % (Auto) (0-2) % Neut # (Auto) (1513-0084) /uL Lymph # (Auto) (5580-5667) /uL Casey # (Auto) (0-900) /uL Eos # (Auto) (0-450) /uL Baso # (Auto) (0-100) /uL PT (10.1-12.7) SECONDS INR (0.9-1.3) APTT (26.4-36.2) SECONDS Sodium 138 (137-145) mmol/L Potassium 3.6 (3.4-5.1) mmol/L Chloride 99 (98-107) mmol/L Carbon Dioxide 37 H (22-32) mmol/L BUN 26 H (7-17) mg/dL Creatinine 0.62 (0.52-1.04) mg/dL Estimated GFR > 60 (>60) mL/min BUN/Creatinine Ratio 41.9 H (6-22) Glucose 112 H (80-110) mg/dL Lactate (0.7-2.1) mmol/L Calcium 9.8 (8.4-10.2) mg/dL Magnesium 1.9 (1.6-2.3) mg/dL Total Bilirubin 1.4 H (0.2-1.3) mg/dL AST 96 H (14-36) IU/L ALT 108 H (<35) IU/L Alkaline Phosphatase 202 H (38-126) U/L Total Creatine Kinase < 20 L 21 L (30-135) U/L CK-MB (CK-2) TNP TNP CK-MB (CK-2) Rel Index TNP TNP Troponin I < 0.012 < 0.012 (0.01-0.034) ng/mL Total Protein 7.1 (6.3-8.2) g/dL Albumin 3.4 L (3.5-5.0) g/dL Globulin 3.7 (1.7-4.1) g/dL Albumin/Globulin Ratio 0.9 L (1.0-2.8) Lipase 83 (23-300) U/L Urine Color Urine Appearance Urine pH (4.5-8.0) Ur Specific [place] (1.000-1.035) Urine Protein (Negative) Urine Glucose (UA) (Negative) g/dL Urine Ketones (NEGATIVE) Urine Occult Blood (Negative) Urine Nitrate (Negative) Urine Bilirubin (NEGATIVE) Ur Bilirubin Confirm (Negative) Urine Urobilinogen (0.2) E.U./dL Ur Leukocyte Esterase (NEGATIVE) Urine RBC (0-5/HPF) Urine WBC (0-5/HPF) Amorphous Sediment Urine Bacteria (None) Hyaline Casts (None) Urine Mucus (Negative) Ur Culture Indicated? SARS-CoV-2 (PCR) Negative (Negative) 03/13/22 Range/Units 13:50 WBC (4.5-11.0) X10^3/uL RBC (4.0-5.2) X10^6/uL Hgb (12.0-16.0) g/dL Hct (36-46) % MCV (80-100) fL MCH (26-34) PG MCHC (30-36) % RDW (11.6-14.8) % Plt Count (150-400) X10^3/uL Neut % (Auto) (50-75) % Lymph % (Auto) (25-40) % Casey % (Auto) (3-14) % Eos % (Auto) (2-4) % Baso % (Auto) (0-2) % Neut # (Auto) (8178-0952) /uL Lymph # (Auto) (6420-4696) /uL Casey # (Auto) (0-900) /uL Eos # (Auto) (0-450) /uL Baso # (Auto) (0-100) /uL PT (10.1-12.7) SECONDS INR (0.9-1.3) APTT (26.4-36.2) SECONDS Sodium (137-145) mmol/L Potassium (3.4-5.1) mmol/L Chloride (98-107) mmol/L Carbon Dioxide (22-32) mmol/L BUN (7-17) mg/dL Creatinine (0.52-1.04) mg/dL Estimated GFR (>60) mL/min BUN/Creatinine Ratio (6-22) Glucose (80-110) mg/dL Lactate (0.7-2.1) mmol/L Calcium (8.4-10.2) mg/dL Magnesium (1.6-2.3) mg/dL Total Bilirubin (0.2-1.3) mg/dL AST (14-36) IU/L ALT (<35) IU/L Alkaline Phosphatase (38-126) U/L Total Creatine Kinase (30-135) U/L CK-MB (CK-2) CK-MB (CK-2) Rel Index Troponin I (0.01-0.034) ng/mL Total Protein (6.3-8.2) g/dL Albumin (3.5-5.0) g/dL Globulin (1.7-4.1) g/dL Albumin/Globulin Ratio (1.0-2.8) Lipase (23-300) U/L Urine Color Yellow Urine Appearance Clear Urine pH 5.5 (4.5-8.0) Ur Specific [place] 1.025 (1.000-1.035) Urine Protein 2+ H (Negative) Urine Glucose (UA) Trace H (Negative) g/dL Urine Ketones 1+ H (NEGATIVE) Urine Occult Blood Trace-lysed (Negative) Urine Nitrate Negative (Negative) Urine Bilirubin 2+ H (NEGATIVE) Ur Bilirubin Confirm Negative (Negative) Urine Urobilinogen 2.0 H (0.2) E.U./dL Ur Leukocyte Esterase Negative (NEGATIVE) Urine RBC None seen (0-5/HPF) Urine WBC 0-1/hpf (0-5/HPF) Amorphous Sediment 3+ Urine Bacteria None seen (None) Hyaline Casts 0-1/lpf (None) Urine Mucus 3+ H D (Negative) Ur Culture Indicated? Specimen cultured SARS-CoV-2 (PCR) (Negative) Imaging Data Chest x-ray: Radiologist Impression: COPD. Cannot rule out underlying subtle patchy bilateral pulmonary infiltrate. No pleural effusion or pneumothorax. Dictated Dr. Quincy Marx 12:32pm CT scan - head: Radiologist Impression: [address] [address] [address] Scan Report Signed Patient: Sachi Kimball MR#: [id number] : 1935 Acct:[id number] Age/Sex: 86 / F Date of Service: 03/13/22 Loc: ED Accession Number: [id number] ?? Procedure: CT head/brain wo con Ordering Provider: Ally Hylton D.O. PROCEDURE:? CT HEAD/BRAIN WO CON ? INDICATIONS:? confusion, on thinners ? TECHNIQUE:? Noncontrast 4.5 mm thick angled axial sections acquired from the foramen magnum to the vertex, with coronal and sagittal reformats.? For radiation dose reduction, the following was used:? automated exposure control, adjustment of mA and/or kV according to patient size.? ? COMPARISON:? [facility], CT, HEAD WITHOUT CONTRAST, 01/06/2018, 12:14. ? FINDINGS:? Image quality:? Excellent.? ? CSF spaces:? Basal cisterns are patent.? No extra-axial fluid collections.? The ventricles are symmetric in size and shape.? ? Brain:? No intracranial bleeds or masses.? There is cerebral volume loss for age, with resultant ventricular and sulcal prominence.? There are periventricular and deep white matter chronic small vessel ischemic changes.? There is intracranial internal carotid artery atherosclerosis.? Symmetric calcification is seen of the basal ganglia, which is considered to be within normal limits for age. ? Skull and face:? Calvarium and visualized facial bones appear intact, without suspicious lesions.? ? Sinuses:? Visualized sinuses and mastoids are clear.? ? IMPRESSION:? No acute intracranial hemorrhage is seen.? ? No acute intracranial process is seen.? ? Note is made of age-appropriate brain parenchymal volume loss and chronic small vessel ischemic changes. ? ? Dictated by: Dylan Silver M.D. on 03/13/2022 at 12:34 ? ? Approved by: Dylan Silver M.D. on 03/13/2022 at 12:35? US - abdomen: Radiologist Impression: Close Abdomen Ultrasound (Signed) Amaury Schaffer - 03/13/[address] (Signed) Dylan Silver - 03/13/22 Chest X-Ray 03/13/22 DI Result CC 01/17/22 Chest X-Ray (Signed) Amaury Schaffer - 12/22/21 Hip X-Ray (Signed) Jomar Mullins - 11/12/21 Hip X-Ray (Signed) Rui Yeung - 11/05/21 Femur X-Ray (Signed) Quincy Marx - 11/05/21 Knee X-Ray (Signed) ConnollyCesarHeath - 05/08/[address] (Signed) NadeemDylan - 04/16/21 Lumbar Spine X-Ray (Signed) Cesar Connollyie - 03/28/21 Carotid Doppler Study (Signed) Gina Silvere - 08/22/19 Chest CTA (Signed) AvilezMaineleni - 06/06/18 Chest X-Ray (Signed) Donovan Matute - 03/30/18 Echocardiogram Ultrasound (Signed) Keyla Rios - 03/26/[address] (Signed) MirandaSummer - 03/26/18 Telemetry Strips 03/24/18 Telemetry Strips 03/24/18 Bladder Scan 03/24/18 Chest CTA (Signed) MohsenHeath - 03/23/18 Chest X-Ray (Signed) Tomas Riziv - 03/23/18 DI Result 03/23/18 Launch?[place] [address] Ultrasound Report Signed Patient: Sachi Kimball MR#: [id number] : 1935 Acct:[id number] Age/Sex: 86 / F Date of Service: 03/13/22 Loc: ED Accession Number: [id number] ?? Procedure: US abdomen limited Ordering Provider: Ally Hylton D.O. PROCEDURE: US ABDOMEN LIMITED ? INDICATIONS:? WEAKNESS; ELEVATED LFTS ? TECHNIQUE:? Real-time focused scanning was performed of the abdomen, with image documentation.? ? COMPARISON:? [facility], CT, CT ANGIO CHEST, 06/06/2018, 22:58. ? FINDINGS:? ? Gallbladder:? Dependent, layering sludge.? No shadowing stones, wall thickening or pericholecystic fluid. ? CBD:? Measures up to 11.3 cm. ? Pancreas:? Within normal limits. ? IMPRESSION:? 1. Dependent, layering sludge. 2. Dilatation of the CBD. ? ? Dictated by: Amaury Schaffer M.D. on 03/13/2022 at 14:03 ? ? Approved by: Amaury Schaffer M.D. on 03/13/2022 at 14:07?? ECG Data Attestation: I personally reviewed and interpreted this ECG as follows: Interpretation: Sinus tachycardia, seizure premature supraventricular complexes. Rate of 108, NJ 142 QRS of 118 and QTC 445. No acute ST elevation. Depression in lateral leads and 2 3 AVF. Patient has a prior EKG from 06/07/[address] depression but shows RSR on right bundle-branch block with changes to the anterior leads new changes with depression noted in the lateral leads in 2 3 AVF with depression. MDM Narrative Medical decision making narrative: This is an 86-year-old female sent for altered mental status although unclear if this is a slow change versus brand new, on thinners and medications for dyslipidemia, hypertension and prior history of pulmonary emboli. Patient EKG shows some acute changes, chest x-ray shows possible pneumonia. Labs show some elevation of LFTs, patient is nontender but common bile duct is enlarged with biliary sludge. Patient is afebrile. Discussed with hospitalist who accepts for observation for new ST changes on comparison to old EKG but negative troponin with no acute chest pain, patient did have some intermittent AFib RVR was given a single dose of Del which did improve her heart rate and oral diltiazem. Per she is on a statin, Plavix and rivaroxaban daily for prior pulmonary emboli. Right upper quadrant but patient does have, by add that enlargement with biliary sludge elevation of LFTs. Discussed attempt to get MRCP but patient has pacemaker and our machine is incompatible so will have to defer this. Patient was covered with antibiotics. Dr. Prather will evaluate to decide about surgical consultation. Discharge Plan Departure Patient Disposition: Admitted as Observation Clinical Impression: Atrial fibrillation with RVR, Elevated LFTs, Common bile duct dilatation Admit Date/Time: 03/13/22 16:20 Admit Provider: Mando Dupont
--- NOTE | 2022-03-13 13:08 | DI.CT.S_ITS ---
PROCEDURE: CT HEAD/BRAIN WO CON INDICATIONS: confusion, on thinners TECHNIQUE: Noncontrast 4.5 mm thick angled axial sections acquired from the foramen magnum to the vertex, with coronal and sagittal reformats. For radiation dose reduction, the following was used: automated exposure control, adjustment of mA and/or kV according to patient size. COMPARISON: [facility], CT, HEAD WITHOUT CONTRAST, 01/06/2018, 12:14. FINDINGS: Image quality: Excellent. CSF spaces: Basal cisterns are patent. No extra-axial fluid collections. The ventricles are symmetric in size and shape. Brain: No intracranial bleeds or masses. There is cerebral volume loss for age, with resultant ventricular and sulcal prominence. There are periventricular and deep white matter chronic small vessel ischemic changes. There is intracranial internal carotid artery atherosclerosis. Symmetric calcification is seen of the basal ganglia, which is considered to be within normal limits for age. Skull and face: Calvarium and visualized facial bones appear intact, without suspicious lesions. Sinuses: Visualized sinuses and mastoids are clear. IMPRESSION: No acute intracranial hemorrhage is seen. No acute intracranial process is seen. Note is made of age-appropriate brain parenchymal volume loss and chronic small vessel ischemic changes. Dictated by: Dylan Sivler M.D. on 03/13/2022 at 12:34 Approved by: Dylan Silver M.D. on 03/13/2022 at 12:35
--- NOTE | 2022-03-13 13:09 | DI.US.S_ITS ---
PROCEDURE: US ABDOMEN LIMITED INDICATIONS: WEAKNESS; ELEVATED LFTS TECHNIQUE: Real-time focused scanning was performed of the abdomen, with image documentation. COMPARISON: [facility], CT, CT ANGIO CHEST, 06/06/2018, 22:58. FINDINGS: Gallbladder: Dependent, layering sludge. No shadowing stones, wall thickening or pericholecystic fluid. CBD: Measures up to 11.3 cm. Pancreas: Within normal limits. IMPRESSION: 1. Dependent, layering sludge. 2. Dilatation of the CBD. Dictated by: Amaury Schaffer M.D. on 03/13/2022 at 14:03 Approved by: Amaury Schaffer M.D. on 03/13/2022 at 14:07
[2022-03-13 13:13] LABS: Troponin I < 0.012 ng/mL (0.01-0.034)
[2022-03-13 13:24] LABS: COVID19 -Nasal RAPID Negative (Negative)
[2022-03-13 13:31] LABS: INR 1.2 (0.9-1.3); Prothrombin Time 13.1 SECONDS (10.1-12.7)
[2022-03-13 13:34] LABS: PTT Partial Thromboplastin Tim 27 SECONDS (26.4-36.2)
[2022-03-13] MEDS: levoFLOXacin 750 MG/150 ML PIGGYBACK 100 MG IV (13:44)
[2022-03-13 14:03] LABS: Creatine Kinase 21 U/L (30-135)
[2022-03-13 14:06] LABS: Appearance Urine UA CLEAR; Bilirubin Urine UA 2+ (NEGATIVE); Color Urine UA YELLOW; Glucose Urine UA TRACE g/dL (Negative); Ketones Urine UA 1+ (NEGATIVE); Leukocyte Esterase Urine UA NEGATIVE (NEGATIVE); Nitrite Urine UA NEGATIVE (Negative); Occult Blood Urine UA TRACE-LYSED (Negative); Protein Urine UA 2+ (Negative); Specific Gravity Urine UA 1.025 (1.000-1.035)
[2022-03-13 14:14] LABS: Amorphous Sediment Urine 3+; Bacteria Urine None Seen; Culture Indicated Urine Specimen Cultured; Hyaline Casts Urine 0-1/LPF; Mucus Urine 3+ (Negative); RBC Urine None Seen (0-5/HPF); WBC Urine 0-1/HPF (0-5/HPF); pH Urine UA 5.5 (4.5-8.0)
[2022-03-13 14:15] LABS: Ictotest Urine Negative (Negative)
[2022-03-13 14:16] LABS: Troponin I < 0.012 ng/mL (0.01-0.034)
[2022-03-13] MEDS: SODIUM CHLORIDE 0.9% 1,000 ML 1000 ML IV (15:21)
[2022-03-13 15:45] LABS: Lactate (Lactic Acid) 1.5 mmol/L (0.7-2.1)
[2022-03-13] MEDS: dilTIAZem 5 MG/ML SDV 10 MG IV (15:56)
[2022-03-13] MEDS: dilTIAZem CD 120 MG CAP PO (16:35)
[2022-03-13] MEDS: cefTRIAXone 1,000 MG in SODIUM CHLORIDE 0.9% 100 ML 200 ML IV (18:19)
--- NOTE | 2022-03-13 18:36 | PC.NURSE ---
Pt to room 215 via stretcher from ER. Pt transferred to bed by slider board. Spouse Jona is present in the room and assisted with admit questions. Pt O2 sat 98% on 2L via NC. Pt denies shortness of breath, pain, or nausea. Pt oriented to her name, and birthdate, but struggles to recall the name of where she is or why, can only name 2 of 4 of her daughters. States she lives in [place] but in fact lives on [place]. She frequently checks in with her spouse for the answer to questions. Oriented Pt to room, call light, bed controls, and tv controls. Bed alarm on for safety. Daughter arrived from [place] to assist with her parents care as they both are having memory issues. Pt's Spouse and Daughter have left for a bit to have dinner. Pt is restless in bed-denies pain. Pt resistance to requests such as leaving her IV alone, constantly pulls her O2 sat off her finger, and refused to have the [employer] TECHNICIAN in the room while she voided in the bedside commode.
[2022-03-13] MEDS: METOPROLOL ER 25 MG TABLET 12.5 MG PO (21:19)
[2022-03-13] MEDS: SODIUM CHLORIDE 0.9% FLUSH 10 ML IV (21:20)
--- NOTE | 2022-03-13 23:28 | P.HP_ITS ---
History of Present Illness History of Present Illness Date Patient Seen: 03/13/22 Time Patient Seen: 20:45 Chief complaint: Failure to thrive Narrative: ? Sachi Kimball is an 86-year-old female with essential hypertension, COPD, paced, coronary artery disease and a history of a PE in 2018 was [address] from [facility] for failure to thrive, weakness and decreased mental status.? ? Patient is aware that she is at the hospital she wants to be at when has trouble recalling the name, location and context.? She knows her name.? She states she lives on [facility].? She has trouble with any additional history.? She denies any pain.? No headache, no neck pain, no chest pain.?Denies nausea or vomiting no other GI or urinary symptoms described.?Patient normally lives independently at home with her . Her Jona Kimball provides more details. She has had nausea, with decreased appetite for several days with a 20 lb weight loss over the past 5 months, reportedly had a pounding heart rate that she could hear. Family requested from the nurse that she be assessed for dementia. Head CT ordered in the emergency department did not reveal any acute intracranial process though noted of age-appropriate brain parenchymal volume loss and chronic small-vessel ischemic changes. Ultrasound of the abdomen was done due to elevated liver function tests and noted ?layering sludge and dilatation of the common bile duct. She is afebrile, blood pressure 139/69,, heart rate 77, respiratory rate 16, oxygen saturation 95% on room air she weighs 47.6 kg with a BMI of 16.4. White count is elevated at 13, she has a left shift, platelet count is 280, bicarb 37, glucose 112, total bilirubin is 1.4, AST 96, ALT 108, alk-phos 202, albumin is 3.4, lipase is within normal limits, and urinalysis that was sent out for culture (though no nitrates or bacteria) and culture is pending, COVID-19 PCR is negative. Patient History Medical History Achilles bursitis Achilles tendinitis Acute pulmonary embolism Anticoagulation adequate Arthritis of facet joint of cervical spine Carotid artery stenosis Cellulitis COPD (chronic obstructive pulmonary disease) HTN (hypertension) Hyperlipidemia Left knee pain group home (current) use of anticoagulants Low back pain Sinus node dysfunction Spondylolisthesis at L3-L4 level Ventricular tachycardia Surgical History Anesthesia History of appendectomy Pacemaker (~2019) Family & Social History Family History Father Cancer Mother Cancer Brother Cancer Social History: household members spouse Prior Living Arrangements House Safety & Behavioral: Feels Safe in Current Yes Environment Been Physically Hurt or No Threatened By a Person Suicidal Ideation Description None Suicide Plan Description No Plan Tobacco & Substance use: Tobacco type cigarettes Smoking Status Former smoker, quit 20 years ago alcohol intake current alcohol intake frequency 1-2 drinks/day Substance Use Type does not use Meds Home Medications and Allergies Home Medications Medication Instructions Recorded Confirmed Type calcium carbonate 600 mg calcium 600 mg PO DAILY 03/25/21 03/13/22 History (1,500 mg) tablet acetaminophen 500 mg tablet 500 - 1,000 mg PO Q8-10H PRN #40 11/05/21 03/13/22 Rx (Tylenol Extra Strength) tab atorvastatin 40 mg tablet 40 mg PO DAILY #90 tab 01/17/22 03/13/22 Rx metoprolol tartrate 25 mg tablet 12.5 mg PO DAILY #45 tab 02/16/22 03/13/22 Rx rivaroxaban 20 mg tablet 20 mg PO DAILY #90 tab 02/16/22 03/13/22 Rx Allergies Allergy/AdvReac Type Severity Reaction Status Date / Time amoxicillin AdvReac Intermediate Pain, Verified 03/13/22 09:53 Diarrhea Review of Systems Review of Systems ROS: Yes All systems reviewed with the patient and are negative except as otherwise documented Exam Vital Signs (past 8 hours): - 03/13/22 15:30 03/13/22 15:45 03/13/22 16:00 Temperature Pulse Rate 125 H 110 H 120 H Respiratory Rate Blood Pressure 117/56 L 132/62 Pulse Oximetry 94 97 03/13/22 16:02 03/13/22 16:30 03/13/22 17:20 Temperature 98.4 F Pulse Rate 114 H 101 H 95 H Respiratory Rate 22 20 18 Blood Pressure 135/75 135/75 123/53 L Pulse Oximetry 92 97 98 03/13/22 17:43 03/13/22 19:20 Temperature 98.2 F Pulse Rate 77 Respiratory Rate 16 Blood Pressure 139/69 Pulse Oximetry 99 95 Oxygen Delivery Method Nasal Cannula Oxygen Flow Rate 0 Narrative Exam Narrative: Gen: Alert, oriented X 1-2, thin and cachectic appearing 86 y.o. fem chris, a little confused HEENT: normocephalic, atraumatic, conjunctiva clear, sclera non-icteric, oral mucosa pink and moist Neck: supple, full ROM, no JVD, trachea is midline Resp: Lungs CTA, non-labored breathing CV: RRR, no murmur or rubs Abd: soft, non-tender, normoactive BTs Skin: thin and friable, no lesions or rashes, dry and intact Neuro: Alert and oriented X 1-2 w/no focal deficits. Pleasantly confused. Speech clear and coherent. Extremities: moves all 4 extremities, is ambulatory, negative Crescencio?s sign Psyche: normal mood and affect. Objective Labs Result Diagrams: 03/13/22 12:05 03/13/22 12:40 Labs: Laboratory Results - last 24 hr 03/13/22 03/13/22 03/13/22 12:05 12:05 12:05 WBC 13.0 H RBC 3.74 L Hgb 12.6 Hct 37.7 MCV 100.6 H MCH 33.6 MCHC 33.4 RDW 12.7 Plt Count 280 Neut % (Auto) 86.6 H Lymph % (Auto) 4.8 L [place] % (Auto) 7.9 Eos % (Auto) 0.4 L Baso % (Auto) 0.3 Neut # (Auto) 28548 H Lymph # (Auto) 600 L [place] # (Auto) 1000 H Eos # (Auto) 100 Baso # (Auto) 0 PT 13.1 H INR 1.2 APTT 27 D Sodium Potassium Chloride Carbon Dioxide BUN Creatinine Estimated GFR BUN/Creatinine Ratio Glucose Lactate 1.5 Calcium Magnesium Total Bilirubin AST ALT Alkaline Phosphatase Total Creatine Kinase CK-MB (CK-2) CK-MB (CK-2) Rel Index Troponin I Total Protein Albumin Globulin Albumin/Globulin Ratio Lipase Urine Color Urine Appearance Urine pH Ur Specific [employer] Urine Protein Urine Glucose (UA) Urine Ketones Urine Occult Blood Urine Nitrate Urine Bilirubin Ur Bilirubin Confirm Urine Urobilinogen Ur Leukocyte Esterase Urine RBC Urine WBC Amorphous Sediment Urine Bacteria Hyaline Casts Urine Mucus Ur Culture Indicated? SARS-CoV-2 (PCR) 03/13/22 03/13/22 03/13/22 12:40 12:53 13:36 WBC RBC Hgb Hct MCV MCH MCHC RDW Plt Count Neut % (Auto) Lymph % (Auto) [place] % (Auto) Eos % (Auto) Baso % (Auto) Neut # (Auto) Lymph # (Auto) [place] # (Auto) Eos # (Auto) Baso # (Auto) PT INR APTT Sodium 138 Potassium 3.6 Chloride 99 Carbon Dioxide 37 H BUN 26 H Creatinine 0.62 Estimated GFR > 60 BUN/Creatinine Ratio 41.9 H Glucose 112 H Lactate Calcium 9.8 Magnesium 1.9 Total Bilirubin 1.4 H AST 96 H ALT 108 H Alkaline Phosphatase 202 H Total Creatine Kinase < 20 L 21 L CK-MB (CK-2) TNP TNP CK-MB (CK-2) Rel Index TNP TNP Troponin I < 0.012 < 0.012 Total Protein 7.1 Albumin 3.4 L Globulin 3.7 Albumin/Globulin Ratio 0.9 L Lipase 83 Urine Color Urine Appearance Urine pH Ur Specific [employer] Urine Protein Urine Glucose (UA) Urine Ketones Urine Occult Blood Urine Nitrate Urine Bilirubin Ur Bilirubin Confirm Urine Urobilinogen Ur Leukocyte Esterase Urine RBC Urine WBC Amorphous Sediment Urine Bacteria Hyaline Casts Urine Mucus Ur Culture Indicated? SARS-CoV-2 (PCR) Negative 03/13/22 13:50 WBC RBC Hgb Hct MCV MCH MCHC RDW Plt Count Neut % (Auto) Lymph % (Auto) [place] % (Auto) Eos % (Auto) Baso % (Auto) Neut # (Auto) Lymph # (Auto) [place] # (Auto) Eos # (Auto) Baso # (Auto) PT INR APTT Sodium Potassium Chloride Carbon Dioxide BUN Creatinine Estimated GFR BUN/Creatinine Ratio Glucose Lactate Calcium Magnesium Total Bilirubin AST ALT Alkaline Phosphatase Total Creatine Kinase CK-MB (CK-2) CK-MB (CK-2) Rel Index Troponin I Total Protein Albumin Globulin Albumin/Globulin Ratio Lipase Urine Color Yellow Urine Appearance Clear Urine pH 5.5 Ur Specific [employer] 1.025 Urine Protein 2+ H Urine Glucose (UA) Trace H Urine Ketones 1+ H Urine Occult Blood Trace-lysed Urine Nitrate Negative Urine Bilirubin 2+ H Ur Bilirubin Confirm Negative Urine Urobilinogen 2.0 H Ur Leukocyte Esterase Negative Urine RBC None seen Urine WBC 0-1/hpf Amorphous Sediment 3+ Urine Bacteria None seen Hyaline Casts 0-1/lpf Urine Mucus 3+ H D Ur Culture Indicated? Specimen cultured SARS-CoV-2 (PCR) Assessment & Plan Assessment & Plan narrative: Sachi Kimball is admitted for a suspected actute cholecystitis and possible cholelithiasis. 1. Acute suspected cholecystitis, cholelithiais, present on admission * She is initiated on IV ceftriaxone. Zosyn would have been the 1st choice however she has a penicillin allergy * Minimal IVF due to concerns for volume overload, normal saline at 21 mL/hour 2. Severe protein calorie malnutrition * She has a bmi of 16.4 and a 20 lb weight loss over the past 5 months * She is ordered for a heart healthy diet 3. Atrial fibrillation with a history of PE, chronic * Continue anticoagulation with rivaroxaban 20 mg p.o. daily * Patient is paced * Rate controlled with metoprolol 12.5 mg p.o. daily 4. Coronary artery disease, chronic * Continue home dose of atorvastatin 40 mg p.o. daily 5. Suspected dementia * Occupational therapy consult ordered for cognitive evaluation sometime t omorrow VTE Prophylaxis: Wells risk score 1.5 [X] Bilateral SCDs Patient is currently anticoagulated on rivaroxaban. Patient is placed into observation as her stay is not expected to exceed 2 midni ghts. FEN: IV fluids: NS at 21 ml/hour, diet: heart healthy, labs: CBC, C/BMP, liver enzymes, Mag, PT/INR Consultants None Dispo: Discharge to home if appropriate Code status: Full Code as discussed with the patient who identifies her spouse, Jona as her surrogate and POA. [X] I have utilized all available immediate resources to obtain, update, or review of the patient's current medications COVID-19 COVID-19 status: Negative Result date/Date tested (Pos, Neg/Pending): 03/13/22 Scores Wells' Criteria for PE Clinical signs and symptoms of DVT: No PE is #1 Dx or equally likely: No Heart rate > 100: No Immobilization at least 3 days or surg in previous 4 weeks: No History of PE or DVT: Yes Hemoptysis: No Malignancy w/Treatment within 6 months or palliative: No Wells' PE Score total: 1.5 Quality VTE Deep Vein Thrombosis/Pulmonary Embolism Present on Admission: No MIPS - Admit I confirm the patient?s Advance Care Plan is present, Code status is documented, Surrogate decision maker is in patient?s record [If Yes, STOP here]: Yes MIPS - DC The patient has current or prior documentation of left ventricular ejection fraction (LVEF) less than 40%, or moderate or severely depressed left ventricu lar systolic function.: No
[2022-03-14] VITALS (9 sets, daily range): BP systolic 109–140; BP diastolic 51–71; PULSE 77–94; RESP 12–16; TEMP 37–37.2; O2SAT 92–97
[2022-03-14 00:19] LABS: Add Manual Diff / Slide Review NO; Basophils Absolute Auto 100 /uL (0-100); Basophils Percent Auto 0.5 % (0-2); Eosinophils Absolute Auto 100 /uL (0-450); Eosinophils Percent Auto 1.1 % (2-4); Hematocrit 34.8 % (36-46); Lymphocytes Absolute Auto 900 /uL (1100-4500); Lymphocytes Percent Auto 8.7 % (25-40); Mean Corpuscular HGB Conc 34.5 % (30-36); Mean Corpuscular Hemoglobin 34.2 PG (26-34); Mean Corpuscular Volume 98.9 fL (80-100); Monocytes Absolute Auto 900 /uL (0-900); Monocytes Percent Auto 8.4 % (3-14); Neutrophils Absolute Auto 8500 /uL (1500-7000); Neutrophils Percent Auto 81.3 % (50-75); Platelet Count 262 X10^3/uL (150-400); Red Blood Cell Count 3.52 X10^6/uL (4.0-5.2); Red Cell Distribution Width 12.6 % (11.6-14.8); White Blood Cell Count 10.5 X10^3/uL (4.5-11.0)
[2022-03-14 00:31] LABS: Lactate (Lactic Acid) 1.2 mmol/L (0.7-2.1)
[2022-03-14 00:33] LABS: Alanine Aminotransferase 81 IU/L (<35); Albumin Globulin Ratio 0.9 (1.0-2.8); Alkaline Phosphatase 155 U/L (38-126); Aspartate Aminotransferase 75 IU/L (14-36); BUN Creatinine Ratio 41.5 (6-22); Bilirubin Total 0.9 mg/dL (0.2-1.3); Blood Urea Nitrogen 22 mg/dL (7-17); Carbon Dioxide 30 mmol/L (22-32); Chloride 102 mmol/L (98-107); Estimated Glomerular Filt Rate > 60 mL/min (>60); Globulin 3.3 g/dL (1.7-4.1); Glucose 87 mg/dL (80-110); HEMOLYSIS < 15 (0-50); Magnesium 1.7 mg/dL (1.6-2.3); Potassium 3.1 mmol/L (3.4-5.1); Sodium 138 mmol/L (137-145); Total Protein 6.3 g/dL (6.3-8.2)
[2022-03-14 00:49] LABS: Procalcitonin 0.13 ng/mL (<0.5)
[2022-03-14] MEDS: METOPROLOL ER 25 MG TABLET 12.5 MG PO (08:49)
[2022-03-14] MEDS: SODIUM CHLORIDE 0.9% FLUSH 10 ML IV (08:55)
[2022-03-14] MEDS: ATORVASTATIN 20 MG TABLET 40 MG PO (08:56)
--- NOTE | 2022-03-14 09:05 | OT.IP.EVAL ---
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 Mobility and Gait Completely independent and did not use a device prior. Activities of Daily Living and IADL's Completely independent for ADl 's, IADL and took her own medications. Social History Household Members spouse Living Arrangements House Number of Floors (Floors) One Floor Number of Stairs To Enter/Railing? Pt has 3 steps with bilateral rails to get into the house. Home Environment Standard Height Toilet,Walk in Shower Home Equipment Front Wheel Walker,Straight Cane M2 OT-IP Current Condition Start: 03/14/22 13:26 Freq: Status: Active Protocol: Document 03/14/22 13:26 [facility] (Rec: 03/14/22 13:57 [facility] [id number]) Occupational Therapy Current Condition Current Condition Evaluation Date 03/14/22 Treatment Diagnosis Failure to Thrive, altered mental status Diagnosis Onset Date 03/13/22 M3 OT- IP Subjective and Pain Start: 03/14/22 13:26 Freq: Status: Active Protocol: Document 03/14/22 13:26 [facility] (Rec: 03/14/22 13:57 [facility] [id number]) OT- Subjective Occupational Therapy Visit Type Type Initial Evaluation Visit Start Time 09:05 Visit Stop Time 10:00 Total Visit Minutes 55 Occupational Therapy Visit Comments Patient Comments Pt agreed to get up and her and his daughter present in the room. Patient/Caregiver Goals TO go home. OT Pain Assessment Pain When Pain Assessed At Rest Pain Present Pain Present Pain Reported M4 OT- IP ADL's Start: 03/14/22 13:26 Freq: Status: Active Protocol: Document 03/14/22 13:26 [facility] (Rec: 03/14/22 13:57 [facility] [id number]) OT [id number] Comments OT Self-Feeding Comments Pt having difficulty to drink her water and noted coughing on the water and asked for orders for SPARE HAND eval . Educated pt to be sure to eat when upright and chew her foods thoroughly. OT ADL-Grooming General Evaluation Grooming Ability Independent OT ADL-Dressing General Eval Lower Body Dressing Ability Standby Assistance Comments OT Dressing Comments Pt able to neal/doff her socks while seated. Pt needing CGA to close SBA for balance while stand to neal/doff her underwear while using the toilet. OT ADL-Toileting General Evaluation Toileting Ability Contact Guard Assistance Areas Needing Assistance Manage Clothing OT ADL-Bathing Comments OT Bathing Comments Pt will benefit from a shower chair for safety at this time. M5 OT- IP IADL's Start: 03/14/22 13:26 Freq: Status: Active Protocol: Document 03/14/22 13:26 [facility] (Rec: 03/14/22 13:57 [facility] [id number]) OT-Instrumental Activities of Daily Living Home Safety Awareness Awareness of Need for Assistance at Home Decreased Awareness Ability to Problem Solve Emergency Unable to Problem Solve Situations Home Safety Comments Pt very confused, not thinking well and also not aware that she is not thinking well. At this time pt will need 24/ supervision for safety and assist for ADl and mobility needs. M6 OT- IP Functional Cognition Start: 03/14/22 13:26 Freq: Status: Active Protocol: Document 03/14/22 13:26 [facility] (Rec: 03/14/22 13:57 [facility] [id number]) Cognitive Factors Limiting Selfcare Function Cognitive Ability Level of Alertness Confusional State Patient Orientation Name Attention Span Ability Capable of Focused Attention, Capable of Sustained Attention Ability to Follow Commands Able to Follow One Step Commands Memory Description Short Term Impaired,Working Impaired Safety Awareness Underestimates Need for Assistance Problem Solving Ability Unable to Identify Errors, Needs Assist to Identify Solutions Executive Function Ability Unable to Filter Distractions, Unable to Make Plans,Unable to Organize Plans,Unable to Remember Details Cognitive Tests SLUMS Pt scored 7/30 which implies dementia and only able to state the states we are in, add 20 +3 , able to recall 5 animals in one minute, states 3 and 4 digit numbers backwards, and able to draw an x on a triangle and pick out the largest shape. Pt here for malnutrition which may be impacting her cognitive status and score. Would be good to re-assess when pt is doing better with her nutrition . 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 At this time strongly suggested that pt does not drive., Pt's family agreed. OT- Vision and Hearing OT- Hearing Assessment OT- Hearing Assessment WFL OT- Vision Assessment Visual Acuity Glasses For Reading M7 OT- IP Mobility and Balance Start: 03/14/22 13:26 Freq: Status: Active Protocol: Document 03/14/22 13:26 [facility] (Rec: 03/14/22 13:57 [facility] [id number]) OT- Bed Mobility Assessment Rolling Level of Assistance Standby Assistance Supine to Sit Supine to Sit Assist Standby Assistance OT-Transfer Assessment Sit to and From Stand Sit to and from Stand Standby Assistance Transfers Transfer Ability Standby Assistance,Contact Guard Assistance Technique Transfer Destination Bed,Toilet Transfer Technique Stand Step Pivot Devices Transfer Assistive Devices None,Gait Belt,Front Wheeled Walker Comments Mobility Comments Pt a little unsteady on her feet and needing CGA without a device and close SBA with FWW . OT- Balance Assessment Sitting Balance and Reactions Static Sitting Balance Ability Normal Dynamic Sitting Balance Ability Good Standing Balance and Reactions Static Standing Balance Ability Fair M8 OT- IP Objective Assessments Start: 03/14/22 13:26 Freq: Status: Active Protocol: Document 03/14/22 13:26 [facility] (Rec: 03/14/22 13:57 [facility] [id number]) OT Gross Range of Motion Upper Extremity Range of Motion Assessment Within Functional Limits OT Strength Upper Extremity Strength Assessment Within Functional Limits OT- Coordination Assessment Upper Extremity Finger to Nose Test Within Functional Limits OT-Muscle Tone Assessment Muscle Tone WNL Yes OT Sensation Assessment Comments Summary Comments Intact for light touch M9 OT- IP Assessment and Plan Start: 03/14/22 13:26 Freq: Status: Active Protocol: Document 03/14/22 13:26 [facility] (Rec: 03/14/22 13:57 [facility] [id number]) OT Summary Assessment and Plan Potential Rehabilitation Potential Fair Analytic Complexity at Evaluation Moderate Summary OT Impairments Balance,Functional Cognition, Functional Mobility,Grooming, Dressing,Toileting,Bathing, Toilet Transfers,Shower Transfers,Activity Tolerance Progress Towards Goals Slow Progress due to Medical Issues,Slow Progress due to Cognition Assessment Summary Pt MOD complexity and main barriers are steps, not thinking or processing well at this time and will need 24/7 assist especially for safety awareness. Pt a little unsteady on her feet and noted to be coughing of thin liquids. OT has suggested pt have PT and SPARE HAND evals as well or if going home to have for home health. Pt will greatly benefit from 24/7 assist at home. Goals Self-Feeding Goal Independent Grooming Goal Independent Dressing Goal Independent Toileting Goal Independent Bathing Goal Independent Toilet Transfer Goal Independent Shower Transfer Goal Independent Days to Meet Goals 10 Frequency of Treatment Frequency Of Treatment Once a Day Treatment Plan OT Treatment Plan ADL Training,Functional Cognition Training,Functional Mobility,Patient/Family Education,Discharge Planning Other Treatment Recommendations and Next shower if still here Treatment Focus Discharge Recommendations OT Discharge Recommendations Home with 24/7 Assist Available,Home Health Home Equipment Needs Shower chair Transportation Needs at Discharge Private Vehicle
--- NOTE | 2022-03-14 11:49 | PC.NURSE ---
Addendum entered by Ari Sandoval R.N. 03/14/22 17:23: Pt readied for d/c at 15:30 and escorted to car at 16:00. D/c instructions given to the family. Daughter here to help with d/c instructions and to get Pt and home. Original Note: Pt alert, offers no complaints, confused at times. and daughter attentive at the bedside.
[2022-03-14] MEDS: POTASSIUM CHLORIDE 20 MEQ TAB 40 MEQ PO (12:28)
--- NOTE | 2022-03-14 12:32 | CM.DANOTE ---
Addendum entered by Pushpa Montano R.N. 03/14/22 15:26: Patient is to discharge today, [place] [address] [place] nurse,Ari. Addendum entered by Pushpa Montano R.N. 03/14/22 14:13: Dr. Dupont is discharging patient today, he has met with patient's daughter, and as well. Went ahead and left John at [facility] a message about referral, then, called back and updated Daysi at [facility]. She is aware of referral, let her know that disciplines are needed. Faxed over face sheet, face to face, orders, H&P, and DC Summary. Added RN, P.T, O.T, speech, and TILE TRIMMER. Original Note: DCP: Case received, EMR reviewed and met with patient. Introduced self and role. Patient's spouse, Sameer, and daughter, Ayaz, were in the room. Introduced self and role. Was able to obtain information regarding patient's baseline activity level at home, as well as her current living situation. DCP assessment completed with information currently available. Patient is an 86 year old female who admitted yesterday afternoon to the care of the hospitalist team. PCP: Dr. Marcelo Carroll. Payer: confirmed: Medicare/ for Life. Patient came to the hospital via ambulance secondary to failure to thrive. She was air lifted from [facility]. Patient lives there with her spouse, Sameer. She has some dementia, as well as her spouse. Patient came to the hospital due to increased sleeping, decreased appetite with no solids for the past 5 days. Her diagnosis is acute suspected cholecystitis. During rounds, hospitalist indicated that patient may be ready for discharge today. Met with patient, spouse, and daughter, Ayaz, in the room. Confirmed that patient and spouse do reside on [place]. Patient was wanting to walk in the hallways with her walker. She is pleasantly confused. At home, she does not use any DME supplies. Spouse, Jona, was in the room, and he no longer drives. Confirmed that patient just stopped driving about 5 days ago. Discussed discharge planning with patient and daughter. Gave her some caregiving resources, and information on home health. Ayaz lives in [place], but indicated that her sister, Tori Reyes, is planning on staying with patient and upon discharge, and can do so starting today. Gave Ayaz some information on the agency here in [employer], as well as other caregiving agencies in the [employer] Book, so she can review while her sister is staying with patient. Can set up [facility] right away (since they are the [facility] agency [facility]. P: DCP to continue to follow. Plan is home with home health and family. Left a note with Dr. Dupont if he wishes to discharge patient, but will need to see patient and speak to daughter. Patient will need priority boarding pass. Pushpa Montano RN/[facility]arf [facility] Discharge Planning/Care Management CM Discharge Assessment Start: 03/14/22 12:29 Freq: Status: Active Protocol: Document 03/14/22 12:29 (Rec: 03/14/22 12:32 [id number]) Discharge Planning Assessment Assigned [place] Pushpa Montano RN/[facility] Advance Directives? No Advance Directives on File patient provided information History Provided By Patient,Significant Other, Medical Record Prior Living Arrangements House Household Members spouse Type of transporation used prior to Drives own vehicle admit Comment Patient has been driving since about 5 days ago. Independent with ADL's Yes Is patient alert and oriented? Yes: Patient does have some dementia Needs Assistance With Home Chores / Shopping Patient/Family Preference Home with Home Health Comment [facility] Barriers to Discharge Yes Comment Her and both have dementia, but daughter stated that her sister Tori, will be staying with them. Discharge Plan Home with Home Health Transportation Arrangement Ayaz Harmon Updated in Patient Room with Yes name and ext. # of [place] Review Status In Process Next Review Type Continued Stay Review
--- NOTE | 2022-03-14 13:24 | PM.DS.1 ---
History of Present Illness History of Present Illness Date Patient Seen: 03/14/22 Time Patient Seen: 13:25 Chief complaint: Failure to thrive Narrative: Sachi Kimball is an 86-year-old female with essential hypertension, COPD, paced, coronary artery disease and a history of a PE in 2018 was airlifted from [facility] for failure to thrive, weakness and decreased mental status.? ? Patient is aware that she is at the hospital she wants to be at when has trouble recalling the name, location and context.? She knows her name.? She states she lives on [facility].? She has trouble with any additional history.? She denies any pain.? No headache, no neck pain, no chest pain.?Denies nausea or vomiting no other GI or urinary symptoms described.?Patient normally lives independently at home with her . Her Jona Kimball provides more details. She has had nausea, with decreased appetite for several days with a 20 lb weight loss over the past 5 months, reportedly had a pounding heart rate that she could hear. Family requested from the nurse that she be assessed for dementia. Head CT ordered in the emergency department did not reveal any acute intracranial process though noted of age-appropriate brain parenchymal volume loss and chronic small-vessel ischemic changes.? Ultrasound of the abdomen was done due to elevated liver function tests and noted? ?layering sludge and dilatation of the common bile duct.? She is afebrile, blood pressure 139/69,, heart rate 77, respiratory rate 16, oxygen saturation 95% on room air she weighs 47.6 kg with a BMI of 16.4.? White count is elevated at 13, she has a left shift, platelet count is 280, bicarb 37, glucose 112, total bilirubin is 1.4, AST 96, ALT 108, alk-phos 202, albumin is 3.4, lipase is within normal limits, and urinalysis that was sent out for culture (though no nitrates or bacteria) and culture is pending, COVID-19 PCR is negative. Discharge Providers Provider Date of admission: 03/13/22 16:20 Discharge Date: 03/14/22 Primary care physician: Marcelo Carroll MD Consults: 03/13/22 18:10 Consult to Dietitian, Adult Routine Comment: Reason For Exam: very litte appetite, failure to thrive, weakness 03/13/22 23:08 Consult to Occupational Therapy Evaluate & Treat Comment: Cognitive evaluation Physician Instructions: Evaluate and treat 03/14/22 00:01 Consult to Dietitian, Adult Routine Comment: Reason For Exam: anorexia, severe prot el malnutrition Discharge provider: Mando Dupont DO Summary Hospital Course Discharge Diagnosis: 1. Acute cystitis 2. Severe protein calorie malnutrition 3. Atrial fibrillation with a history of PE, chronic 4. Coronary artery disease, chronic 5. Dementia 6. Elevated bilirubin with a dilated CBD Hospital Course: This is an 86-year-old female who was brought to the emergency room for failure to thrive. On initial laboratory evaluation she was noted to have mild bilirubin elevations, with an ultrasound showing a mildly dilated CBD and gallstones concerning for choledocholithiasis. She also had a mildly elevated white blood cell count. Urinalysis was positive, though cultures were ultimately negative. Given her history of pacemaker placement, the patient was unable to go MRCP for further evaluation of possible choledocholithiasis. However the following day the patient was tolerating a diet and she had no significant abdominal pain, and her bilirubin had improved. Her lack of appetite recently may be due to her acute cystitis, the patient was described Macrobid to complete a course of treatment at home. However, her symptoms are more likely a manifestation of progressive dementia. There is also a prior dietary note from 2018 that also showed decreased appetite at that time. I Recommend that she follow-up with her primary care provider as an outpatient for possible medications, depending on how she responds to treatment of her acute cystitis. Patient was discharged home with home health, and someone will stay with the patient and her for a couple of days. Appreciate care management assistance given complex social situation. Time Spent with Patient Time spent: Greater than 30 minutes Exam Vital Signs (past 8 hours): - 03/14/22 05:31 03/14/22 07:38 03/14/22 08:15 Temperature 98.6 F 99.0 F Pulse Rate 85 77 Respiratory Rate 16 13 Blood Pressure 140/60 114/51 L Pulse Oximetry 92 92 93 03/14/22 08:49 03/14/22 11:45 03/14/22 12:09 Temperature 98.6 F Pulse Rate 77 94 H Respiratory Rate 12 Blood Pressure 114/51 L 109/71 Pulse Oximetry 95 97 Oxygen Delivery Method Room Air Oxygen Flow Rate 0 Narrative Exam Narrative: Gen: Alert, oriented X 1-2, thin and cachectic appearing 86 y.o. ? female HEENT: normocephalic, atraumatic, conjunctiva clear, sclera non-icteric, oral mucosa pink and moist Neck: supple, full ROM, no JVD, trachea is midline Resp: Lungs CTA, non-labored breathing CV: RRR, no murmur or rubs Abd: soft, non-tender, nondistended Skin: thin and friable, no lesions or rashes, dry and intact Neuro: Alert and oriented X 1-2 w/no focal deficits.? Pleasantly confused.? Speech clear and coherent. Extremities: moves all 4 extremities, is ambulatory, negative Crescencio?s sign Psyche: normal mood and affect. Objective Labs Result Diagrams: 03/14/22 00:00 03/14/22 00:00 Labs: Laboratory Results - last 24 hr 03/13/22 03/13/22 03/13/22 12:05 12:05 12:53 WBC RBC Hgb Hct MCV MCH MCHC RDW Plt Count Neut % (Auto) Lymph % (Auto) [place] % (Auto) Eos % (Auto) Baso % (Auto) Neut # (Auto) Lymph # (Auto) [place] # (Auto) Eos # (Auto) Baso # (Auto) PT 13.1 H INR 1.2 APTT 27 D Sodium Potassium Chloride Carbon Dioxide BUN Creatinine Estimated GFR BUN/Creatinine Ratio Glucose Lactate 1.5 Calcium Magnesium Total Bilirubin AST ALT Alkaline Phosphatase Total Creatine Kinase CK-MB (CK-2) CK-MB (CK-2) Rel Index Troponin I Total Protein Albumin Globulin Albumin/Globulin Ratio Procalcitonin Urine Color Urine Appearance Urine pH Ur Specific [place] Urine Protein Urine Glucose (UA) Urine Ketones Urine Occult Blood Urine Nitrate Urine Bilirubin Ur Bilirubin Confirm Urine Urobilinogen Ur Leukocyte Esterase Urine RBC Urine WBC Amorphous Sediment Urine Bacteria Hyaline Casts Urine Mucus Ur Culture Indicated? SARS-CoV-2 (PCR) Negative 03/13/22 03/13/22 03/14/22 13:36 13:50 00:00 WBC RBC Hgb Hct MCV MCH MCHC RDW Plt Count Neut % (Auto) Lymph % (Auto) [place] % (Auto) Eos % (Auto) Baso % (Auto) Neut # (Auto) Lymph # (Auto) [place] # (Auto) Eos # (Auto) Baso # (Auto) PT INR APTT Sodium Potassium Chloride Carbon Dioxide BUN Creatinine Estimated GFR BUN/Creatinine Ratio Glucose Lactate 1.2 Calcium Magnesium Total Bilirubin AST ALT Alkaline Phosphatase Total Creatine Kinase 21 L CK-MB (CK-2) TNP CK-MB (CK-2) Rel Index TNP Troponin I < 0.012 Total Protein Albumin Globulin Albumin/Globulin Ratio Procalcitonin Urine Color Yellow Urine Appearance Clear Urine pH 5.5 Ur Specific [place] 1.025 Urine Protein 2+ H Urine Glucose (UA) Trace H Urine Ketones 1+ H Urine Occult Blood Trace-lysed Urine Nitrate Negative Urine Bilirubin 2+ H Ur Bilirubin Confirm Negative Urine Urobilinogen 2.0 H Ur Leukocyte Esterase Negative Urine RBC None seen Urine WBC 0-1/hpf Amorphous Sediment 3+ Urine Bacteria None seen Hyaline Casts 0-1/lpf Urine Mucus 3+ H D Ur Culture Indicated? Specimen cultured SARS-CoV-2 (PCR) 03/14/22 03/14/22 03/14/22 00:00 00:00 00:00 WBC 10.5 RBC 3.52 L Hgb 12.0 Hct 34.8 L MCV 98.9 MCH 34.2 H MCHC 34.5 RDW 12.6 Plt Count 262 Neut % (Auto) 81.3 H Lymph % (Auto) 8.7 L [place] % (Auto) 8.4 Eos % (Auto) 1.1 L Baso % (Auto) 0.5 Neut # (Auto) 8500 H Lymph # (Auto) 900 L [place] # (Auto) 900 Eos # (Auto) 100 Baso # (Auto) 100 PT INR APTT Sodium 138 Potassium 3.1 L Chloride 102 Carbon Dioxide 30 BUN 22 H Creatinine 0.53 Estimated GFR > 60 BUN/Creatinine Ratio 41.5 H Glucose 87 Lactate Calcium 9.0 Magnesium 1.7 Total Bilirubin 0.9 AST 75 H ALT 81 H Alkaline Phosphatase 155 H Total Creatine Kinase CK-MB (CK-2) CK-MB (CK-2) Rel Index Troponin I Total Protein 6.3 Albumin 3.0 L Globulin 3.3 Albumin/Globulin Ratio 0.9 L Procalcitonin 0.13 Urine Color Urine Appearance Urine pH Ur Specific [place] Urine Protein Urine Glucose (UA) Urine Ketones Urine Occult Blood Urine Nitrate Urine Bilirubin Ur Bilirubin Confirm Urine Urobilinogen Ur Leukocyte Esterase Urine RBC Urine WBC Amorphous Sediment Urine Bacteria Hyaline Casts Urine Mucus Ur Culture Indicated? SARS-CoV-2 (PCR) PFSH Medical History Achilles bursitis Achilles tendinitis Acute pulmonary embolism Anticoagulation adequate Arthritis of facet joint of cervical spine Carotid artery stenosis Cellulitis COPD (chronic obstructive pulmonary disease) HTN (hypertension) Hyperlipidemia Left knee pain snf (current) use of anticoagulants Low back pain Sinus node dysfunction Spondylolisthesis at L3-L4 level Ventricular tachycardia Surgical History Anesthesia History of appendectomy Pacemaker (~2019) Family History Father Cancer Mother Cancer Brother Cancer Social History household members: spouse Smoking Status: Former smoker alcohol intake: current additional social history: She and her live on [facility] long-time residents there Discharge Plan Discharge Plan Patient Disposition: Home Provider Discharge Comment: You were admitted to the hospital with a decreased appetite. You were found to have a UTI but had severe cognitive impairment on testing. Please follow up with PCP. Started on medication for appetite stimulant. Discharge orders & Medications Prescriptions: New citalopram 10 mg tablet 10 mg PO DAILY 30 Days Qty: 30 0RF nitrofurantoin macrocrystal 100 mg capsule 100 mg PO BID 5 Days Qty: 10 0RF Rx Instructions: must administer with a meal/food Continued atorvastatin 40 mg tablet 40 mg PO DAILY Qty: 90 3RF calcium carbonate 600 mg calcium (1,500 mg) tablet 600 mg PO DAILY 0RF metoprolol tartrate 25 mg tablet 12.5 mg PO DAILY Qty: 45 3RF rivaroxaban 20 mg tablet 20 mg PO DAILY Qty: 90 3RF Rx Instructions: must administer with evening meal acetaminophen [Tylenol Extra Strength] 500 mg tablet 500 - 1,000 mg PO Q8-10H PRN (Reason: pain) Qty: 40 0RF Follow up/Referrals: Marcelo Carroll MD [Primary Care Provider] - Diet/Activity/Treatments Diet: Diet as Tolerated Activity: As tolerated Discharge Data Primary Care Provider: Marcelo Carroll Attending Provider: Mando Dupont VTE Deep Vein Thrombosis/Pulmonary Embolism Present on Admission: No
== END 2022-03-14 16:00 | disposition home or self-care (01) ==
LOC: ED 16:17 → AC 16:21
PROVIDERS: Nurse Practitioner Family; Admitting Provider Internal Medicine; Emergency Provider Emergency Medicine; PCP Family Medicine; Referring Provider Emergency Medicine; Visit Provider Internal Medicine
DX: R53.1 Weakness (principal); R41.0 Disorientation, unspecified; R62.7 Adult failure to thrive; Z95.0 Presence of cardiac pacemaker; Z79.01 Long term (current) use of anticoagulants; Z86.711 Personal history of pulmonary embolism; E43 Unspecified severe protein-calorie malnutrition; Z68.1 Body mass index [BMI] 19.9 or less, adult; I25.10 Atherosclerotic heart disease of native coronary artery without angina pectoris; I48.20 Chronic atrial fibrillation, unspecified; Z20.822 Contact with and (suspected) exposure to COVID-19
CPT/HCPCS: 36415; 51701; 70450; 71045; 76705; 80053; 81001; 82550; 83605; 83690; 83735; 84145; 84484; 85025; 85610; 85730; 87040; 87086; 87635; 93005; 94760; 96365; 96366; 96375; 97166; 97535; 99285; C9803; G0378; J0696; J1956

== ENCOUNTER → 2022-03-17 14:17 | Outpatient (CLI) | payer MEDICARE, OTHER, SELFPAY ==
[2022-03-17 10:59] VITALS: PULSE 101; RESP 22; O2SAT 92; BMI 16.4
== END ==
PROVIDERS: PCP Family Medicine; Visit Provider Physician Assistant
DX: J02.9 Acute pharyngitis, unspecified (principal)
CPT/HCPCS: 87070

== ENCOUNTER → 2022-04-15 09:55 | Outpatient (CLI) | payer MEDICARE, OTHER, SELFPAY ==
[2022-03-17 10:59] VITALS: PULSE 101; RESP 22; O2SAT 92; BMI 16.4
[2022-04-15 19:22] LABS: HEMOLYSIS 18 (0-50); Iron 127 ug/dL (37-170)
[2022-04-15 19:35] LABS: Alanine Aminotransferase 23 IU/L (<35); Albumin 3.5 g/dL (3.5-5.0); Albumin Globulin Ratio 1.1 (1.0-2.8); Alkaline Phosphatase 118 U/L (38-126); Aspartate Aminotransferase 41 IU/L (14-36); Bilirubin Total 0.5 mg/dL (0.2-1.3); Bilirubin Unconjugated 0.5 mg/dL (0.0-1.1); Globulin 3.1 g/dL (1.7-4.1); HEMOLYSIS 17 (0-50); Percent Iron Saturation 43 % (15-50); Total Iron Binding Capacity 293 ug/dL (265-497); Total Protein 6.6 g/dL (6.3-8.2); Transferrin 228 mg/dL (206-381)
[2022-04-15 20:20] LABS: Vitamin B12 773 pg/mL (239-931)
[2022-04-16 16:48] LABS: Hepatitis B Surface Antigen NEGATIVE s/c (NEGATIVE)
[2022-04-16 17:07] LABS: Hep C Virus Ab w/Reflex Quant NEGATIVE s/c (NEGATIVE)
== END ==
PROVIDERS: PCP Family Medicine; Visit Provider Family Medicine
DX: D64.9 Anemia, unspecified (principal); B37.0 Candidal stomatitis; E46 Unspecified protein-calorie malnutrition; E53.8 Deficiency of other specified B group vitamins; E78.5 Hyperlipidemia, unspecified; E87.6 Hypokalemia; F32.1 Major depressive disorder, single episode, moderate; I48.21 Permanent atrial fibrillation; R62.7 Adult failure to thrive; R79.89 Other specified abnormal findings of blood chemistry
CPT/HCPCS: 80076; 82607; 83540; 83550; 84443; 86803; 87340

== ENCOUNTER → 2024-01-06 09:25 | Outpatient (CLI) | payer MEDICARE, OTHER, SELFPAY ==
[2023-08-31 10:56] VITALS: PULSE 101; RESP 22; O2SAT 92; BMI 16.4
[2024-01-06 19:36] LABS: Add Manual Diff / Slide Review NO; Basophils Absolute Auto 100 /uL (0-100); Basophils Percent Auto 1.2 % (0-2); Eosinophils Absolute Auto 0 /uL (0-450); Eosinophils Percent Auto 0.4 % (2-4); Hematocrit 40.7 % (36-46); Hemoglobin 13.6 g/dL (12.0-16.0); Lymphocytes Absolute Auto 1200 /uL (1100-4500); Lymphocytes Percent Auto 19.8 % (25-40); Mean Corpuscular HGB Conc 33.5 % (30-36); Mean Corpuscular Hemoglobin 33.2 PG (26-34); Mean Corpuscular Volume 99.1 fL (80-100); Monocytes Absolute Auto 600 /uL (0-900); Monocytes Percent Auto 9.7 % (3-14); Neutrophils Absolute Auto 4200 /uL (1500-7000); Neutrophils Percent Auto 68.9 % (50-75); Platelet Count 199 X10^3/uL (150-400); Red Blood Cell Count 4.11 X10^6/uL (4.0-5.2); Red Cell Distribution Width 13.1 % (11.6-14.8); White Blood Cell Count 6.1 X10^3/uL (4.5-11.0)
[2024-01-06 20:18] LABS: Alanine Aminotransferase 22 IU/L (<35); Albumin Globulin Ratio 1.3 (1.0-2.8); Alkaline Phosphatase 81 U/L (38-126); Aspartate Aminotransferase 34 IU/L (14-36); BUN Creatinine Ratio 31.7 (6-22); Bilirubin Total 1.1 mg/dL (0.2-1.3); Blood Urea Nitrogen 20 mg/dL (7-17); Calcium 9.9 mg/dL (8.4-10.2); Carbon Dioxide 31 mmol/L (22-32); Chloride 106 mmol/L (98-107); Cholesterol 189 mg/dL (140-199); Estimated Glomerular Filt Rate > 60 mL/min (>60); Glucose 92 mg/dL (80-110); HDL Cholesterol 87 mg/dL (40-60); HEMOLYSIS 16 (0-50); LDL Cholesterol Calculated 85 mg/dL (<100); Potassium 3.8 mmol/L (3.4-5.1); Sodium 144 mmol/L (137-145); Triglycerides 83 mg/dL (35-150)
[2024-01-06 20:54] LABS: TSH w/ Reflex to FT4 2.32 uIU/mL (0.47-4.68)
[2024-01-06 21:09] LABS: Vitamin B12 > 1000 pg/mL (239-931)
== END ==
PROVIDERS: PCP Family Medicine; Visit Provider Family Medicine
DX: R63.4 Abnormal weight loss (principal); E46 Unspecified protein-calorie malnutrition; E87.6 Hypokalemia; R44.1 Visual hallucinations; R79.89 Other specified abnormal findings of blood chemistry; E53.8 Deficiency of other specified B group vitamins; I10 Essential (primary) hypertension; E78.5 Hyperlipidemia, unspecified
CPT/HCPCS: 80053; 80061; 82607; 84443; 85025

== ENCOUNTER → 2024-03-15 10:29 | Outpatient (CLI) | payer MEDICARE, OTHER, SELFPAY ==
[2023-08-31 10:56] VITALS: PULSE 101; RESP 22; O2SAT 92; BMI 16.4
[2024-03-15 22:03] LABS: Vitamin B12 830 pg/mL (239-931)
== END ==
PROVIDERS: PCP Family Medicine; Visit Provider Family Medicine
DX: E53.8 Deficiency of other specified B group vitamins (principal); D64.9 Anemia, unspecified
CPT/HCPCS: 82607